=== PATIENT | female | born 1935 ===

== ENCOUNTER 2020-08-27 14:33 | Observation (INO) | payer MEDICARE, OTHER ==
--- NOTE | 2020-08-27 15:01 | PCM.EKG ---
#1 Interpretation EKG Date: 08/27/20 Time: 14:55 Rhythm: NSR Rate (Beats/Min): 54 ST-T: Normal
[2020-08-27 15:47] LABS: CARBON DIOXIDE,CO2 22.1 mmol/L (21.0-32.0); POTASSIUM,K 4.6 mmol/L (3.5-5.1)
--- NOTE | 2020-08-27 16:05 | EDM.PDOC ---
ED HPI GENERAL MEDICAL PROBLEM - General Chief Complaint: Abdominal Pain Stated Complaint: REFERRED FROM [facility] Time Seen by Provider: 08/27/20 14:36 Source of Information: Reports: Patient History Limitations: Reports: No Limitations - History of Present Illness INITIAL COMMENTS - FREE TEXT/NARRATIVE: 84-year-old female patient who presents from primary care clinic with a concern of abdominal pain and bloating. The patient states that she has not been feeling well for the last 2 weeks her abdomen has been hurting particularly on the left side and now is swollen up. She has been nauseated and poor appetite. She has not been vomiting but abdominal pain increases with eating and with urinating. For the last week her ankles and feet have been swelling and she has been urinating less. She states that she has not really had a bowel movement but instead has had scant yellow diarrhea daily. She denies chest pain, shortness of breath, dysuria, irregular heartbeat or palpitations. She does have a history of atrial fib, breast cancer and peripheral neuropathy. She has been on Coumadin for 16 years for her A-fib and is requesting an INR. abdomen Pain Score (Numeric/FACES): 4 - Related Data Allergies Allergy/AdvReac Type Severity Reaction Status Date / Time No Known Allergies Allergy Verified 08/27/20 19:55 Home Meds: Home Meds Acetaminophen [Tylenol Extra Strength] 2 tab PO ASDIRECTED PRN 10/29/14 [History] Anastrozole [Arimidex] 1 mg PO DAILY 10/29/14 [History] Lisinopril/Hydrochlorothiazide [Lisinopril-Hctz 20-12.5 mg Tab] 1 tab PO DAILY 10/29/14 [History] Sotalol HCl [Sorine] 120 mg PO ASDIRECTED 10/29/14 [History] Sotalol HCl [Sotalol] 80 mg PO ASDIRECTED 10/29/14 [History] Vitamin B Complex [B Complex] 1 tab PO DAILY 10/29/14 [History] Warfarin [Coumadin] 4 mg PO DAILY 10/29/14 [History] Zolpidem Tartrate 5 mg PO BEDTIME PRN 10/29/14 [History] traMADol HCl [Ultram] 50 mg PO ASDIRECTED PRN 10/29/14 [History] Gabapentin [Neurontin] 400 mg PO DAILY 08/27/20 [History] Past Medical History HEENT History: Reports: Macular Degeneration Other HEENT History: wears glasses Cardiovascular History: Reports: Afib, Hypertension, SOB on Exertion Respiratory History: Reports: Other (See Below) Other Respiratory History: SOB with exertion Gastrointestinal History: Reports: GERD Genitourinary History: Reports: Other (See Below) Other Genitourinary History: urinary urgency [employer]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 Musculoskeletal History: Reports: None Neurological History: Reports: None, Neuropathy, Peripheral Psychiatric History: Reports: None Endocrine/Metabolic History: Reports: Obesity/BMI 30+ Hematologic History: Reports: Blood Transfusion(s) Other Hematologic History: blood transfusion with hip replacement Immunologic History: Reports: None Oncologic (Cancer) History: Reports: Breast Dermatologic History: Reports: None - Past Surgical History Head Surgeries/Procedures: Reports: None HEENT Surgical History: Reports: Cataract Surgery, Tonsillectomy Cardiovascular Surgical History: Reports: None Respiratory Surgical History: Reports: None GI Surgical History: Reports: Appendectomy, Cholecystectomy, Colonoscopy, EGD Female Surgical History: Reports: Breast Biopsy, Hysterectomy Endocrine Surgical History: Reports: None Neurological Surgical History: Reports: Lumbar Spine Other Neurological Surgeries/Procedures: hx back surgery Musculoskeletal Surgical History: Reports: Hip Replacement Oncologic Surgical History: Reports: Lumpectomy Other Oncologic Surgeries/Procedures: lumpectomy rt breast Dermatological Surgical History: Reports: None Social & Family History - Family History Family Medical History: No Pertinent Family History - Tobacco Use Tobacco Use Status *Q: Never Tobacco User - Caffeine Use Caffeine Use: Reports: Coffee - Recreational Drug Use Recreational Drug Use: No ED ROS GENERAL - Review of Systems Review Of Systems: Comprehensive ROS is negative, except as noted in HPI. ED EXAM, GI/ABD - Physical Exam Exam: See Below Exam Limited By: No Limitations General Appearance: Alert, No Apparent Distress Ears: Normal External Exam Nose: Normal Inspection Throat/Mouth: Normal Inspection Head: Atraumatic, Normocephalic Neck: Normal Inspection Respiratory/Chest: No Respiratory Distress, Lungs Clear, Normal Breath Sounds Cardiovascular: Normal Peripheral Pulses, Regular Rate, Rhythm, Other (2+ pitting edema in the lower legs and feet) GI/Abdominal Exam: Normal Bowel Sounds, Distended, Tender, Other (firm) Back Exam: Normal Inspection Extremities: Pedal Edema Neurological: Alert, Oriented Psychiatric: Normal Affect, Normal Mood Skin Exam: Warm, Dry, Intact, Normal Color, No Rash Lymphatic: No Adenopathy #1 Interpretation EKG Date: 08/27/20 Time: 14:53 Rhythm: NSR Rate (Beats/Min): 54 [place]: Normal P-Wave: Present QRS: Normal ST-T: Normal QT: Normal NV/PQ Interval: 193 Course - Vital Signs Last Recorded V/S: Last Vital Signs Temp 36.3 C 08/27/20 15:09 Pulse 52 L 08/27/20 15:09 Resp 16 08/27/20 15:09 BP 125/39 L 08/27/20 15:09 Pulse Ox 95 08/27/20 15:09 - Orders/Labs/Meds Orders: Active Orders 24 hr Category Date Time Status UA W/MYNOR RFLX IF INDICATED [URIN] Stat Lab 08/27/20 15:20 Ordered Medication Orders Acetaminophen (Tylenol) 650 mg PO Q4H PRN PRN Reason: Pain (Mild 1-3)/fever Gabapentin (Neurontin) 200 mg PO BEDTIME ROBB Pantoprazole Sodium 40 mg/ (Sodium Chloride) 10 mls @ 300 mls/hr IVPUSH DAILY ROBB Lactated Ringer's (Ringers, Lactated) 1,000 mls @ 75 mls/hr IV CONTINUOUS ONE Stop: 08/28/20 08:59 Last Admin: 08/27/20 21:07 Dose: 75 mls/hr Documented by: SENG Morphine Sulfate (Morphine) 2 mg IVPUSH Q4H PRN PRN Reason: Pain Ondansetron HCl (Zofran) 4 mg IVPUSH Q4H PRN PRN Reason: Nausea Warfarin Sodium (Coumadin Ask) 1 each PO ONETIME ONE Stop: 08/27/20 19:06 Labs: Laboratory Tests 08/27/20 08/27/20 08/27/20 Range/Units 15:06 15:06 15:06 WBC 9.86 (4.0-11.0) K/uL RBC 4.44 (4.30-5.90) M/uL Hgb 12.8 (12.0-16.0) g/dL Hct 38.7 (36.0-46.0) % MCV 87.2 (80.0-98.0) fL MCH 28.8 (27.0-32.0) pg MCHC 33.1 (31.0-37.0) g/dL RDW Std Deviation 48.6 (28.0-62.0) fl RDW Coeff of Geo 15 (11.0-15.0) % Plt Count 250 (150-400) K/uL MPV 10.40 (7.40-12.00) fL Neut % (Auto) 74.9 (48.0-80.0) % Lymph % (Auto) 17.4 (16.0-40.0) % [place] % (Auto) 6.7 (0.0-15.0) % Eos % (Auto) 0.8 (0.0-7.0) % Baso % (Auto) 0.2 (0.0-1.5) % Neut # (Auto) 7.4 H (1.4-5.7) K/uL Lymph # (Auto) 1.7 (0.6-2.4) K/uL [place] # (Auto) 0.7 (0.0-0.8) K/uL Eos # (Auto) 0.1 (0.0-0.7) K/uL Baso # (Auto) 0.0 (0.0-0.1) K/uL Nucleated RBC % 0.0 /100WBC Nucleated RBCs # 0 K/uL Sodium 136 (136-145) mmol/L Potassium 4.6 (3.5-5.1) mmol/L Chloride 100 (98-107) mmol/L Carbon Dioxide 22.1 (21.0-32.0) mmol/L BUN 64 H (7.0-18.0) mg/dL Creatinine 2.3 H (0.6-1.0) mg/dL Est Cr Clr Drug Dosing 16.44 mL/min Estimated GFR (MDRD) 20.1 ml/min Glucose 106 (74-106) mg/dL Calcium 10.5 H (8.5-10.1) mg/dL Total Bilirubin 0.2 (0.2-1.0) mg/dL AST 32 (15-37) IU/L ALT 17 (14-63) IU/L Alkaline Phosphatase 92 (46-116) U/L B-Natriuretic Peptide 71 (<100) PG/ML Total Protein 6.1 L (6.4-8.2) g/dL Albumin 2.9 L (3.4-5.0) g/dL Globulin 3.2 (2.6-4.0) g/dL Albumin/Globulin Ratio 0.9 (0.9-1.6) SARS-CoV-2 RNA (GIANLUCA) (NEGATIVE) 08/27/20 Range/Units 16:08 WBC (4.0-11.0) K/uL RBC (4.30-5.90) M/uL Hgb (12.0-16.0) g/dL Hct (36.0-46.0) % MCV (80.0-98.0) fL MCH (27.0-32.0) pg MCHC (31.0-37.0) g/dL RDW Std Deviation (28.0-62.0) fl RDW Coeff of Geo (11.0-15.0) % Plt Count (150-400) K/uL MPV (7.40-12.00) fL Neut % (Auto) (48.0-80.0) % Lymph % (Auto) (16.0-40.0) % [place] % (Auto) (0.0-15.0) % Eos % (Auto) (0.0-7.0) % Baso % (Auto) (0.0-1.5) % Neut # (Auto) (1.4-5.7) K/uL Lymph # (Auto) (0.6-2.4) K/uL [place] # (Auto) (0.0-0.8) K/uL Eos # (Auto) (0.0-0.7) K/uL Baso # (Auto) (0.0-0.1) K/uL Nucleated RBC % /100WBC Nucleated RBCs # K/uL Sodium (136-145) mmol/L Potassium (3.5-5.1) mmol/L Chloride (98-107) mmol/L Carbon Dioxide (21.0-32.0) mmol/L BUN (7.0-18.0) mg/dL Creatinine (0.6-1.0) mg/dL Est Cr Clr Drug Dosing mL/min Estimated GFR (MDRD) ml/min Glucose (74-106) mg/dL Calcium (8.5-10.1) mg/dL Total Bilirubin (0.2-1.0) mg/dL AST (15-37) IU/L ALT (14-63) IU/L Alkaline Phosphatase (46-116) U/L B-Natriuretic Peptide (<100) PG/ML Total Protein (6.4-8.2) g/dL Albumin (3.4-5.0) g/dL Globulin (2.6-4.0) g/dL Albumin/Globulin Ratio (0.9-1.6) SARS-CoV-2 RNA (GIANLUCA) NEGATIVE (NEGATIVE) Meds: Medications Generic Name Dose Route Start Last Admin Trade Name Mohinder PRN Reason Stop Dose Admin Acetaminophen 650 mg 08/27/20 19:02 Tylenol PO Q4H PRN Pain (Mild 1-3)/fever Gabapentin 200 mg 08/27/20 21:00 Neurontin PO BEDTIME ROBB Pantoprazole Sodium 40 mg/ 10 mls @ 300 mls/hr 08/27/20 19:15 Sodium Chloride IVPUSH DAILY ROBB Lactated Ringer's 1,000 mls @ 75 mls/hr 08/27/20 19:40 08/27/20 21:07 Ringers, Lactated IV 08/28/20 08:59 75 mls/hr CONTINUOUS ONE Administration Morphine Sulfate 2 mg 08/27/20 19:04 Morphine IVPUSH Q4H PRN Pain Ondansetron HCl 4 mg 08/27/20 19:02 Zofran IVPUSH Q4H PRN Nausea Warfarin Sodium 1 each 08/27/20 19:05 Coumadin Ask PO 08/27/20 19:06 ONETIME ONE Discontinued Medications Generic Name Dose Route Start Last Admin Trade Name Mohinder PRN Reason Stop Dose Admin Sodium Chloride 1,000 mls @ 75 mls/hr 08/27/20 16:14 08/27/20 16:23 Normal Saline IV 08/28/20 05:33 75 mls/hr STAT ONE Administration Lactated Ringer's 500 mls @ 999 mls/hr 08/27/20 19:07 08/27/20 19:58 Ringers, Lactated IV 08/27/20 19:37 999 mls/hr BOLUS ONE Administration No Warfarin Dose 0 each 08/27/20 21:15 Needed For 08/27/2020 PO 08/27/20 21:16 ONETIME ONE Ondansetron HCl 4 mg 08/27/20 16:14 08/27/20 16:23 Zofran IVPUSH 08/27/20 16:15 4 mg ONETIME ONE Administration - Re-Assessments/Exams Free Text/Narrative Re-Assessment/Exam: 08/27/20 20:[address] Wiggins regarding history, presentation, lab and imaging findings. Same will refer to observation for KAROL, nausea, abdominal pain and peripheral edema. Departure - Departure Time of Disposition: 20:15 Disposition: Refer to Observation Condition: Fair Clinical Impression: Ascites, KAROL (acute kidney injury), Peripheral neuropathy, Peritoneal carcinomatosis - Discharge Information Sepsis Event Note (ED) - Evaluation Sepsis Screening Result: No Definite Risk - Focused Exam Vital Signs: Vital Signs Temp Pulse Resp BP Pulse Ox 08/27/20 15:09 36.3 C 52 L 16 125/39 L 95 - My Orders Last 24 Hours: My Active Orders 08/27/20 15:20 UA W/MYNOR RFLX IF INDICATED [URIN] Stat - Assessment/Plan Last 24 Hours: My Active Orders 08/27/20 15:20 UA W/MYNOR RFLX IF INDICATED [URIN] Stat
--- NOTE | 2020-08-27 16:05 | CR ---
INDICATION: Pain shortness of breath TECHNIQUE: Single view chest. FINDINGS: The lungs are clear. The heart, mediastinum and pulmonary vessels are of normal size. There is no evidence of pleural disease. Right axillary clips. IMPRESSION: Negative chest. Dictated by Suzanne Layton MD @ Aug 27 2020 4:03PM Signed by Dr. Suzanne Layton @ Aug 27 2020 4:04PM
[2020-08-27] MEDS ORDERED: Ondansetron 4 MG/2 ML SDV IVPUSH ONE (16:14)
[2020-08-27] MEDS ORDERED: Sodium Chloride 0.9% 1,000 ML IV ONE (16:14)
--- NOTE | 2020-08-27 16:41 | CT ---
INDICATION: Abdominal pain for the last 2 weeks; worse today; normal white count. COMPARISON: None. TECHNIQUE: CT abdomen and pelvis without intravenous or oral contrast; coronal and sagittal reformats. FINDINGS: Evidence of abdominal pelvic ascites. extensive peritoneal carcinomatosis with peritoneal caking throughout the abdomen and pelvis. 11 x 7.7 x 8.6 cm soft tissue mass in the mesentery with extensive mesenteric lymphadenopathy throughout. Extensive periaortic and retroperitoneal lymphadenopathy. No pneumoperitoneum or intestinal obstruction. lymphadenopathy identified in the epicardial fat pad bilaterally . No focal hepatic or splenic pathology . There is possibly peripancreatic soft tissue mass lesions. The gallbladder is absent. No adrenal pathology. No kidney stones or obstructive uropathy. There is encasement of the sigmoid colon by the soft tissue mass within the pelvis. Total hip arthroplasty on the left side. Extensive disc degeneration and disc space narrowing throughout the lumbar sacral spine. Impression: 1. Extensive mesenteric and retroperitoneal lymphadenopathy as well as a soft tissue mass in the mesentery. 2. 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 3. Evidence of abdominal pelvic ascites. 4. CT-guided biopsy of the peritoneal nodularity can be performed if clinically needed for histological diagnosis. 5. Findings were notified to Dr. Yates at 4:36 p.m. Please note that all CT scans at this facility use dose modulation, iterative reconstruction, and/or weight-based dosing when appropriate to reduce radiation dose to as low as reasonably achievable. Dictated by Perry Cooper MD @ Aug 27 2020 4:29PM Signed by Dr. Perry Cooper @ Aug 27 2020 4:39PM
[2020-08-27] MEDS ORDERED: Ondansetron 4 MG/2 ML SDV IVPUSH PRN (19:02)
[2020-08-27] MEDS ORDERED: Morphine 2 MG/ML SYRINGE IVPUSH PRN (19:04)
[2020-08-27] MEDS ORDERED: Lactated Ringers 500 ML IV ONE (19:07)
--- NOTE | 2020-08-27 19:09 | PCM.HP.2 ---
<Markell Pedroza M - Last Filed: 08/27/20 19:49> H&P History of Present Illness - General Date of Service: 08/27/20 Admit Problem/Dx: Admission Diagnosis/Problem Admission Diagnosis/Problem Nausea Source of Information: Patient History Limitations: Reports: No Limitations - History of Present Illness Initial Comments - Free Text/Narative: 84-year-old female presents complaining of abdominal pain. She has a past medical history of A. fib on warfarin, breast cancer (remission since 2010), hypertension and peripheral neuropathy. Patient reports that for the past 2 weeks she has been experiencing left-sided abdominal pain and swelling. She has also experienced nausea, decreased appetite, fatigue, leg swelling, decreased urination and yellow-colored diarrhea. She has not had any fevers, chills, sore throat, cough, shortness of breath, chest pain, vomiting, blood in stool, blood in urine, numbness or tingling in extremities. Patient last had chemotherapy for breast cancer in 2010 and used to follow-up with an oncologist here in [place], [place]. In the ER, EKG showed normal sinus rhythm, CBC unremarkable and creatinine 2.3. COVID-19 test negative. Chest X-ray negative. CT abdomen showed extensive mesenteric and retroperitoneal lymphadenopathy, soft tissue mass in the mesentery (11 x 7.7 x 8.6 cm), extensive peritoneal carcinomatosis throughout the abdomen and abdominal pelvic ascites. She was admitted for further evaluation. abdomen Pain Score (Numeric/FACES): 4 - Related Data Allergies/Adverse Reactions: Allergies Allergy/AdvReac Type Severity Reaction Status Date / Time No Known Allergies Allergy Verified 08/27/20 19:55 Home Medications: Home Meds Acetaminophen [Tylenol Extra Strength] 2 tab PO ASDIRECTED PRN 10/29/14 [History] Lisinopril/Hydrochlorothiazide [Lisinopril-Hctz 20-12.5 mg Tab] 1 tab PO DAILY 10/29/14 [History] Sotalol HCl [Sorine] 120 mg PO ASDIRECTED 10/29/14 [History] Sotalol HCl [Sotalol] 80 mg PO ASDIRECTED 10/29/14 [History] Vitamin B Complex [B Complex] 1 tab PO DAILY 10/29/14 [History] Warfarin [Coumadin] 4 mg PO DAILY 10/29/14 [History] Zolpidem Tartrate 5 mg PO BEDTIME PRN 10/29/14 [History] traMADol HCl [Ultram] 50 mg PO ASDIRECTED PRN 10/29/14 [History] Erythromycin Base [Erythromycin 0.5% Ophth Oint] 1 applic EYEBOTH BEDTIME 08/27/20 [History] Gabapentin [Neurontin] 200 mg PO BID 08/27/20 [History] Vit C/E/Zn/Coppr/Lutein/Zeaxan [Preservision Areds 2 Softgel] 1 cap PO DAILY 08/27/20 [History] Vitamins A and D [Vitamin A and D] 1 each PO DAILY 08/27/20 [History] Past Medical History HEENT History: Reports: Macular Degeneration Other HEENT History: wears glasses Cardiovascular History: Reports: Afib, Hypertension, SOB on Exertion Respiratory History: Reports: Other (See Below) Other Respiratory History: SOB with exertion Gastrointestinal History: Reports: GERD Genitourinary History: Reports: Other (See Below) Other Genitourinary History: urinary urgency [employer]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[employer]OR History: Reports: None Musculoskeletal History: Reports: None Neurological History: Reports: None, Neuropathy, Peripheral Psychiatric History: Reports: None Endocrine/Metabolic History: Reports: Obesity/BMI 30+ Hematologic History: Reports: Blood Transfusion(s) Other Hematologic History: blood transfusion with hip replacement Immunologic History: Reports: None Oncologic (Cancer) History: Reports: Breast Dermatologic History: Reports: None - Past Surgical History Head Surgeries/Procedures: Reports: None HEENT Surgical History: Reports: Cataract Surgery, Tonsillectomy Cardiovascular Surgical History: Reports: None Respiratory Surgical History: Reports: None GI Surgical History: Reports: Appendectomy, Cholecystectomy, Colonoscopy, EGD Female Surgical History: Reports: Breast Biopsy, Hysterectomy Endocrine Surgical History: Reports: None Neurological Surgical History: Reports: Lumbar Spine Other Neurological Surgeries/Procedures: hx back surgery Musculoskeletal Surgical History: Reports: Hip Replacement Oncologic Surgical History: Reports: Lumpectomy Other Oncologic Surgeries/Procedures: lumpectomy rt breast Dermatological Surgical History: Reports: None Social & Family History - Family History Family Medical History: No Pertinent Family History - Tobacco Use Tobacco Use Status *Q: Never Tobacco User - Caffeine Use Caffeine Use: Reports: Coffee - Recreational Drug Use Recreational Drug Use: No H&P Review of Systems - Review of Systems: Review Of Systems: Comprehensive ROS is negative, except as noted in HPI. Exam - Exam Exam: See Below - Vital Signs Vital Signs: Last Vital Signs Temp 36.3 C 08/27/20 15:09 Pulse 52 L 08/27/20 15:09 Resp 16 08/27/20 15:09 BP 125/39 L 08/27/20 15:09 Pulse Ox 95 08/27/20 15:09 Weight: 77.111 kg - Exam General: Alert, Oriented, Cooperative, Other (NAD) HEENT: Conjunctiva Clear, EOMI, Hearing Intact, Pupils Equal, Pupils Reactive Neck: Supple, Trachea Midline, Lymphadenopathy Lungs: Normal Respiratory Effort Cardiovascular: Regular Rate, Regular Rhythm GI/Abdominal Exam: Normal Bowel Sounds, Non-Tender, Distended, Other (Firm in LUQ and LLQ.). No: Guarding, Rebound Extremities: Other (1+ pitting edema b/l) Peripheral Pulses: 2+: Radial (L), Radial (R) Skin: Warm, Dry, Intact Neurological: Cranial Nerves Intact, Strength Equal Bilateral, Normal Speech, Normal Tone Neuro Extensive - Mental Status: Alert, Oriented x3, Normal Mood/Affect Psychiatric: Alert, Normal Affect, Normal Mood - Patient Data Lab Results Last 24 hrs: Laboratory Results - last 24 hr 08/27/20 08/27/20 08/27/20 Range/Units 15:06 15:06 15:06 WBC 9.86 (4.0-11.0) K/uL RBC 4.44 (4.30-5.90) M/uL Hgb 12.8 (12.0-16.0) g/dL Hct 38.7 (36.0-46.0) % MCV 87.2 (80.0-98.0) fL MCH 28.8 (27.0-32.0) pg MCHC 33.1 (31.0-37.0) g/dL RDW Std Deviation 48.6 (28.0-62.0) fl RDW Coeff of Geo 15 (11.0-15.0) % Plt Count 250 (150-400) K/uL MPV 10.40 (7.40-12.00) fL Neut % (Auto) 74.9 (48.0-80.0) % Lymph % (Auto) 17.4 (16.0-40.0) % [place] % (Auto) 6.7 (0.0-15.0) % Eos % (Auto) 0.8 (0.0-7.0) % Baso % (Auto) 0.2 (0.0-1.5) % Neut # (Auto) 7.4 H (1.4-5.7) K/uL Lymph # (Auto) 1.7 (0.6-2.4) K/uL [place] # (Auto) 0.7 (0.0-0.8) K/uL Eos # (Auto) 0.1 (0.0-0.7) K/uL Baso # (Auto) 0.0 (0.0-0.1) K/uL Nucleated RBC % 0.0 /100WBC Nucleated RBCs # 0 K/uL Sodium 136 (136-145) mmol/L Potassium 4.6 (3.5-5.1) mmol/L Chloride 100 (98-107) mmol/L Carbon Dioxide 22.1 (21.0-32.0) mmol/L BUN 64 H (7.0-18.0) mg/dL Creatinine 2.3 H (0.6-1.0) mg/dL Est Cr Clr Drug Dosing 16.44 mL/min Estimated GFR (MDRD) 20.1 ml/min Glucose 106 (74-106) mg/dL Calcium 10.5 H (8.5-10.1) mg/dL Total Bilirubin 0.2 (0.2-1.0) mg/dL AST 32 (15-37) IU/L ALT 17 (14-63) IU/L Alkaline Phosphatase 92 (46-116) U/L B-Natriuretic Peptide 71 (<100) PG/ML Total Protein 6.1 L (6.4-8.2) g/dL Albumin 2.9 L (3.4-5.0) g/dL Globulin 3.2 (2.6-4.0) g/dL Albumin/Globulin Ratio 0.9 (0.9-1.6) SARS-CoV-2 RNA (GIANLUCA) (NEGATIVE) 08/27/20 Range/Units 16:08 WBC (4.0-11.0) K/uL RBC (4.30-5.90) M/uL Hgb (12.0-16.0) g/dL Hct (36.0-46.0) % MCV (80.0-98.0) fL MCH (27.0-32.0) pg MCHC (31.0-37.0) g/dL RDW Std Deviation (28.0-62.0) fl RDW Coeff of Geo (11.0-15.0) % Plt Count (150-400) K/uL MPV (7.40-12.00) fL Neut % (Auto) (48.0-80.0) % Lymph % (Auto) (16.0-40.0) % [place] % (Auto) (0.0-15.0) % Eos % (Auto) (0.0-7.0) % Baso % (Auto) (0.0-1.5) % Neut # (Auto) (1.4-5.7) K/uL Lymph # (Auto) (0.6-2.4) K/uL [place] # (Auto) (0.0-0.8) K/uL Eos # (Auto) (0.0-0.7) K/uL Baso # (Auto) (0.0-0.1) K/uL Nucleated RBC % /100WBC Nucleated RBCs # K/uL Sodium (136-145) mmol/L Potassium (3.5-5.1) mmol/L Chloride (98-107) mmol/L Carbon Dioxide (21.0-32.0) mmol/L BUN (7.0-18.0) mg/dL Creatinine (0.6-1.0) mg/dL Est Cr Clr Drug Dosing mL/min Estimated GFR (MDRD) ml/min Glucose (74-106) mg/dL Calcium (8.5-10.1) mg/dL Total Bilirubin (0.2-1.0) mg/dL AST (15-37) IU/L ALT (14-63) IU/L Alkaline Phosphatase (46-116) U/L B-Natriuretic Peptide (<100) PG/ML Total Protein (6.4-8.2) g/dL Albumin (3.4-5.0) g/dL Globulin (2.6-4.0) g/dL Albumin/Globulin Ratio (0.9-1.6) SARS-CoV-2 RNA (GIANLUCA) NEGATIVE (NEGATIVE) Result Diagrams: 08/27/20 15:06 08/27/20 15:06 Sepsis Event Note - Evaluation Sepsis Screening Result: No Definite Risk - Focused Exam Vital Signs: Vital Signs Temp Pulse Resp BP Pulse Ox 08/27/20 15:09 36.3 C 52 L 16 125/39 L 95 - Problem List (1) Peritoneal carcinomatosis SNOMED Code(s): 396969226, 895647982, 046211245 ICD Code: C78.6 - SECONDARY MALIGNANT NEOPLASM OF RETROPERITON AND PERITONEUM Status: Acute Current Visit: Yes (2) Breast cancer SNOMED Code(s): 170732074 ICD Code: C50.919 - MALIGNANT NEOPLASM OF UNSP SITE OF UNSPECIFIED FEMALE BREAST Status: Acute Current Visit: Yes (3) Ascites SNOMED Code(s): 753226533 ICD Code: R18.8 - OTHER ASCITES Status: Acute Current Visit: Yes (4) Atrial fibrillation SNOMED Code(s): 18298137 ICD Code: I48.91 - UNSPECIFIED ATRIAL FIBRILLATION Status: Acute Current Visit: Yes (5) KAROL (acute kidney injury) SNOMED Code(s): 08286787, 53806530 ICD Code: N17.9 - ACUTE KIDNEY FAILURE, UNSPECIFIED Status: Acute Current Visit: Yes (6) HTN (hypertension) SNOMED Code(s): 76969135 ICD Code: I10 - ESSENTIAL (PRIMARY) HYPERTENSION Status: Acute Current Visit: Yes (7) Peripheral neuropathy SNOMED Code(s): 189260227 ICD Code: G62.9 - POLYNEUROPATHY, UNSPECIFIED Status: Acute Current Visit: Yes Problem List Initiated/Reviewed/Updated: Yes Orders Last 24hrs: Active Orders 24 hr Category Date Time Status Patient Status [ADT] Stat ADT 08/27/20 17:45 Active Antiembolic Devices [RC] PER UNIT ROUTINE Care 08/27/20 19:04 Ordered Oxygen Therapy [RC] PRN Care 08/27/20 19:02 Ordered Telemetry Monitoring [Cardiac Monitoring] [RC] . Care 08/27/20 17:51 Active DIRECTED Telemetry Monitoring [Cardiac Monitoring] [RC] . Care 08/27/20 19:05 Ordered DIRECTED Up ad Koki [RC] ASDIRECTED Care 08/27/20 19:02 Ordered VTE/DVT Education [RC] PER UNIT ROUTINE Care 08/27/20 19:02 Ordered Vital Signs [RC] Q4H Care 08/27/20 19:02 Ordered Clear Liquid Diet [DIET] Diet 08/27/20 Dinner Ordered CBC WITH AUTO DIFF [HEME] AM Lab 08/28/20 05:11 Ordered COMPREHENSIVE METABOLIC PN,CMP [CHEM] AM Lab 08/28/20 05:11 Ordered INR,PT,PROTHROMBIN TIME [COAG] DAILY Lab 08/28/20 05:11 Ordered INR,PT,PROTHROMBIN TIME [COAG] DAILY Lab 08/29/20 05:11 Ordered INR,PT,PROTHROMBIN TIME [COAG] DAILY Lab 08/30/20 05:11 Ordered INR,PT,PROTHROMBIN TIME [COAG] DAILY Lab 08/31/20 05:11 Ordered INR,PT,PROTHROMBIN TIME [COAG] DAILY Lab 09/01/20 05:11 Ordered INR,PT,PROTHROMBIN TIME [COAG] Routine Lab 08/27/20 19:05 Ordered UA W/MYNOR RFLX IF INDICATED [URIN] Stat Lab 08/27/20 15:20 Ordered Acetaminophen [TylenoL] Med 08/27/20 19:02 Ordered 650 mg PO Q4H PRN Lactated Ringers [Ringers, Lactated] 1,000 ml Med 08/27/20 19:15 Ordered IV ASDIRECTED Lactated Ringers [Ringers, Lactated] 500 ml Med 08/27/20 19:07 Ordered IV .BOLUS Morphine Med 08/27/20 19:04 Ordered 2 mg IVPUSH Q4H PRN Ondansetron [Zofran] Med 08/27/20 19:02 Ordered 4 mg IVPUSH Q4H PRN Pantoprazole [ProTONIX IV] 40 mg Med 08/27/20 19:15 Ordered Sodium Chloride 0.9% [Normal Saline] 10 ml IV DAILY Sodium Chloride 0.9% [Normal Saline] 1,000 ml Med 08/27/20 16:14 Active IV STAT Warfarin Dosing [Coumadin Ask] Med 08/27/20 19:05 Once 1 each PO ONETIME ONE SCD [Sequential Compression Device] [OM.PC] Routine Oth 08/27/20 19:04 Ordered Resuscitation Status Routine Resus Stat 08/27/20 19:02 Ordered Medication Orders Acetaminophen (Tylenol) 650 mg PO Q4H PRN PRN Reason: Pain (Mild 1-3)/fever Sodium Chloride (Normal Saline) 1,000 mls @ 75 mls/hr IV STAT ONE Stop: 08/28/20 05:33 Last Admin: 08/27/20 16:23 Dose: 75 mls/hr Documented by: SVITLANA Pantoprazole Sodium 40 mg/ (Sodium Chloride) 10 mls @ 300 mls/hr IVPUSH DAILY ROBB Lactated Ringer's (Ringers, Lactated) 500 mls @ 999 mls/hr IV .BOLUS ONE Stop: 08/27/20 19:37 Lactated Ringer's (Ringers, Lactated) 1,000 mls @ 75 mls/hr IV ASDIRECTED ROBB Stop: 08/28/20 08:34 Morphine Sulfate (Morphine) 2 mg IVPUSH Q4H PRN PRN Reason: Pain Ondansetron HCl (Zofran) 4 mg IVPUSH Q4H PRN PRN Reason: Nausea Warfarin Sodium (Coumadin Ask) 1 each PO ONETIME ONE Stop: 08/27/20 19:06 Assessment/Plan Comment:: Assessment and Plan: 1. Abdominal pain secondary to peritoneal carcinomatosis: - Admit to med/surg. Will start clear liquid diet, zofran prn, IV PPI and IV morphine prn pain. - CT abdomen showed extensive mesenteric and retroperitoneal lymphadenopathy, soft tissue mass in the mesentery (11 x 7.7 x 8.6 cm), extensive peritoneal carcinomatosis throughout the abdomen, abdominal pelvic ascites. - Patient has history of breast cancer in remission since 2010. - Will need outpatient oncology follow-up. 2. KAROL: - Creatinine is 2.3. Will give IV LR 500 cc bolus and then start IV LR @ 75 cc/hr maintenance. 3. Atrial fibrillation, on chronic anticoagulation: - Patient on telemetry. - Pharmacy consulted for warfarin therapy. 4. Past medical history of breast cancer, HTN and peripheral neuropathy: - Continue home medications. 5. DVT prophylaxis: - Patient on warfarin. <Tayla Fierro - Last Filed: 08/27/20 23:19> H&P History of Present Illness - General Admit Problem/Dx: Admission Diagnosis/Problem Admission Diagnosis/Problem Nausea - History of Present Illness Initial Comments - Free Text/Narative: I performed a history and physical exam of the patient and discussed management with resident. I have reviewed the residents note and agree with documented findings and plan unless otherwise specified in my note. Exam - Vital Signs Vital Signs: Last Vital Signs Temp 36.3 C 08/27/20 15:09 Pulse 52 L 08/27/20 15:09 Resp 16 08/27/20 15:09 BP 125/39 L 08/27/20 15:09 Pulse Ox 95 08/27/20 15:09 - Patient Data Lab Results Last 24 hrs: Laboratory Results - last 24 hr 08/27/20 08/27/20 08/27/20 Range/Units 15:06 15:06 15:06 WBC 9.86 (4.0-11.0) K/uL RBC 4.44 (4.30-5.90) M/uL Hgb 12.8 (12.0-16.0) g/dL Hct 38.7 (36.0-46.0) % MCV 87.2 (80.0-98.0) fL MCH 28.8 (27.0-32.0) pg MCHC 33.1 (31.0-37.0) g/dL RDW Std Deviation 48.6 (28.0-62.0) fl RDW Coeff of Geo 15 (11.0-15.0) % Plt Count 250 (150-400) K/uL MPV 10.40 (7.40-12.00) fL Neut % (Auto) 74.9 (48.0-80.0) % Lymph % (Auto) 17.4 (16.0-40.0) % [place] % (Auto) 6.7 (0.0-15.0) % Eos % (Auto) 0.8 (0.0-7.0) % Baso % (Auto) 0.2 (0.0-1.5) % Neut # (Auto) 7.4 H (1.4-5.7) K/uL Lymph # (Auto) 1.7 (0.6-2.4) K/uL [place] # (Auto) 0.7 (0.0-0.8) K/uL Eos # (Auto) 0.1 (0.0-0.7) K/uL Baso # (Auto) 0.0 (0.0-0.1) K/uL Nucleated RBC % 0.0 /100WBC Nucleated RBCs # 0 K/uL INR Sodium 136 (136-145) mmol/L Potassium 4.6 (3.5-5.1) mmol/L Chloride 100 (98-107) mmol/L Carbon Dioxide 22.1 (21.0-32.0) mmol/L BUN 64 H (7.0-18.0) mg/dL Creatinine 2.3 H (0.6-1.0) mg/dL Est Cr Clr Drug Dosing 16.44 mL/min Estimated GFR (MDRD) 20.1 ml/min Glucose 106 (74-106) mg/dL Calcium 10.5 H (8.5-10.1) mg/dL Total Bilirubin 0.2 (0.2-1.0) mg/dL AST 32 (15-37) IU/L ALT 17 (14-63) IU/L Alkaline Phosphatase 92 (46-116) U/L B-Natriuretic Peptide 71 (<100) PG/ML Total Protein 6.1 L (6.4-8.2) g/dL Albumin 2.9 L (3.4-5.0) g/dL Globulin 3.2 (2.6-4.0) g/dL Albumin/Globulin Ratio 0.9 (0.9-1.6) SARS-CoV-2 RNA (GIANLUCA) (NEGATIVE) 08/27/20 08/27/20 Range/Units 16:08 20:05 WBC (4.0-11.0) K/uL RBC (4.30-5.90) M/uL Hgb (12.0-16.0) g/dL Hct (36.0-46.0) % MCV (80.0-98.0) fL MCH (27.0-32.0) pg MCHC (31.0-37.0) g/dL RDW Std Deviation (28.0-62.0) fl RDW Coeff of Geo (11.0-15.0) % Plt Count (150-400) K/uL MPV (7.40-12.00) fL Neut % (Auto) (48.0-80.0) % Lymph % (Auto) (16.0-40.0) % [place] % (Auto) (0.0-15.0) % Eos % (Auto) (0.0-7.0) % Baso % (Auto) (0.0-1.5) % Neut # (Auto) (1.4-5.7) K/uL Lymph # (Auto) (0.6-2.4) K/uL [place] # (Auto) (0.0-0.8) K/uL Eos # (Auto) (0.0-0.7) K/uL Baso # (Auto) (0.0-0.1) K/uL Nucleated RBC % /100WBC Nucleated RBCs # K/uL INR 13.48 H* Sodium (136-145) mmol/L Potassium (3.5-5.1) mmol/L Chloride (98-107) mmol/L Carbon Dioxide (21.0-32.0) mmol/L BUN (7.0-18.0) mg/dL Creatinine (0.6-1.0) mg/dL Est Cr Clr Drug Dosing mL/min Estimated GFR (MDRD) ml/min Glucose (74-106) mg/dL Calcium (8.5-10.1) mg/dL Total Bilirubin (0.2-1.0) mg/dL AST (15-37) IU/L ALT (14-63) IU/L Alkaline Phosphatase (46-116) U/L B-Natriuretic Peptide (<100) PG/ML Total Protein (6.4-8.2) g/dL Albumin (3.4-5.0) g/dL Globulin (2.6-4.0) g/dL Albumin/Globulin Ratio (0.9-1.6) SARS-CoV-2 RNA (GIANLUCA) NEGATIVE (NEGATIVE) Result Diagrams: 08/27/20 15:06 08/27/20 15:06 Sepsis Event Note - Focused Exam Vital Signs: Vital Signs Temp Pulse Resp BP Pulse Ox 08/27/20 15:09 36.3 C 52 L 16 125/39 L 95 Orders Last 24hrs: Active Orders 24 hr Category Date Time Status Patient Status [ADT] Stat ADT 08/27/20 17:45 Active Antiembolic Devices [RC] PER UNIT ROUTINE Care 08/27/20 19:04 Active Oxygen Therapy [RC] PRN Care 08/27/20 19:02 Active Telemetry Monitoring [Cardiac Monitoring] [RC] . Care 08/27/20 17:51 Active DIRECTED Telemetry Monitoring [Cardiac Monitoring] [RC] Q8H Care 08/27/20 19:05 Active Up ad Koki [RC] ASDIRECTED Care 08/27/20 19:02 Active VTE/DVT Education [RC] PER UNIT ROUTINE Care 08/27/20 19:02 Active Vital Signs [RC] Q4H Care 08/27/20 19:02 Active Clear Liquid Diet [DIET] Diet 08/27/20 Dinner Active CBC WITH AUTO DIFF [HEME] AM Lab 08/28/20 05:11 Ordered COMPREHENSIVE METABOLIC PN,CMP [CHEM] AM Lab 08/28/20 05:11 Ordered INR,PT,PROTHROMBIN TIME [COAG] DAILY Lab 08/28/20 05:11 Ordered INR,PT,PROTHROMBIN TIME [COAG] DAILY Lab 08/29/20 05:11 Ordered INR,PT,PROTHROMBIN TIME [COAG] DAILY Lab 08/30/20 05:11 Ordered INR,PT,PROTHROMBIN TIME [COAG] DAILY Lab 08/31/20 05:11 Ordered INR,PT,PROTHROMBIN TIME [COAG] DAILY Lab 09/01/20 05:11 Ordered UA W/MYNOR RFLX IF INDICATED [URIN] Stat Lab 08/27/20 15:20 Ordered Acetaminophen [TylenoL] Med 08/27/20 19:02 Active 650 mg PO Q4H PRN Gabapentin [Neurontin] Med 08/27/20 21:00 Active 200 mg PO BEDTIME Lactated Ringers [Ringers, Lactated] 1,000 ml Med 08/27/20 19:40 Active IV CONTINUOUS Morphine Med 08/27/20 19:04 Active 2 mg IVPUSH Q4H PRN Ondansetron [Zofran] Med 08/27/20 19:02 Active 4 mg IVPUSH Q4H PRN Pantoprazole [ProTONIX IV] 40 mg Med 08/27/20 19:15 Active Sodium Chloride 0.9% [Normal Saline] 10 ml IVPUSH DAILY Phytonadione [AquaMephyton] 2.5 mg Med 08/27/20 23:02 Active Sodium Chloride 0.9% [Normal Saline] 50 ml IV NOW Warfarin Dosing [Coumadin Ask] Med 08/27/20 19:05 Pending 1 each PO ONETIME ONE SCD [Sequential Compression Device] [OM.PC] Routine Oth 08/27/20 19:04 Ordered Resuscitation Status Routine Resus Stat 08/27/20 19:02 Ordered Medication Orders Acetaminophen (Tylenol) 650 mg PO Q4H PRN PRN Reason: Pain (Mild 1-3)/fever Gabapentin (Neurontin) 200 mg PO BEDTIME [facility] Last Admin: 08/27/20 21:40 Dose: 200 mg Documented by: SENG Pantoprazole Sodium 40 mg/ (Sodium Chloride) 10 mls @ 300 mls/hr IVPUSH DAILY [facility] Last Admin: 08/27/20 21:34 Dose: 300 mls/hr Documented by: SENG Lactated Ringer's (Ringers, Lactated) 1,000 mls @ 75 mls/hr IV CONTINUOUS ONE Stop: 08/28/20 08:59 Last Admin: 08/27/20 21:07 Dose: 75 mls/hr Documented by: SENG Phytonadione 2.5 mg/ Sodium (Chloride) 50.25 mls @ 100 mls/hr IV NOW ONE Stop: 08/27/20 23:32 Morphine Sulfate (Morphine) 2 mg IVPUSH Q4H PRN PRN Reason: Pain Ondansetron HCl (Zofran) 4 mg IVPUSH Q4H PRN PRN Reason: Nausea Warfarin Sodium (Coumadin Ask) 1 each PO ONETIME ONE Stop: 08/27/20 19:06
[2020-08-27] MEDS ORDERED: Lactated Ringers 1,000 ML IV ONE (19:40)
[2020-08-27] MEDS: Pantoprazole 40 MG in Sodium Chloride 0.9% 10 ML IVPUSH SCH (21:34)
[2020-08-27] MEDS: Gabapentin 100 MG Cap PO SCH (21:40)
[2020-08-27] MEDS ORDERED: Phytonadione 5 MG Tab PO ONE (22:10)
[2020-08-28] MEDS: Acetaminophen 325 MG Tab PO PRN ×2 (03:02→18:45)
[2020-08-28 05:44] LABS: CARBON DIOXIDE,CO2 21.3 mmol/L (21.0-32.0); POTASSIUM,K 4.4 mmol/L (3.5-5.1)
[2020-08-28] MEDS: cefTRIAXone 1 GM in Premix Bag 1 BAG IV SCH (06:33)
--- NOTE | 2020-08-28 08:08 | PCM.PN ---
<Markell Pedroza - Last Filed: 08/28/20 10:22> - General Info Date of Service: 08/28/20 Subjective Update: No complaints at bedside this morning. Urinated overnight but no bowel movements. Denies any fevers, chills, SOB, chest pain, nausea or vomiting. - Patient Data Vitals - Most Recent: Last Vital Signs Temp 35.9 C L 08/28/20 04:35 Pulse 55 L 08/28/20 04:35 Resp 18 08/28/20 04:35 BP 108/45 L 08/27/20 23:45 Pulse Ox 94 L 08/28/20 04:35 Weight - Most Recent: 83.416 kg I&O - Last 24 Hours: Intake & Output 08/27/20 08/28/20 08/28/20 22:59 06:59 14:59 Intake Total 1145 50 Output Total 150 Balance 995 50 Lab Results Last 24 Hours: Laboratory Results - last 24 hr 08/27/20 08/27/20 08/27/20 Range/Units 15:06 15:06 15:06 WBC 9.86 (4.0-11.0) K/uL RBC 4.44 (4.30-5.90) M/uL Hgb 12.8 (12.0-16.0) g/dL Hct 38.7 (36.0-46.0) % MCV 87.2 (80.0-98.0) fL MCH 28.8 (27.0-32.0) pg MCHC 33.1 (31.0-37.0) g/dL RDW Std Deviation 48.6 (28.0-62.0) fl RDW Coeff of Geo 15 (11.0-15.0) % Plt Count 250 (150-400) K/uL MPV 10.40 (7.40-12.00) fL Neut % (Auto) 74.9 (48.0-80.0) % Lymph % (Auto) 17.4 (16.0-40.0) % [place] % (Auto) 6.7 (0.0-15.0) % Eos % (Auto) 0.8 (0.0-7.0) % Baso % (Auto) 0.2 (0.0-1.5) % Neut # (Auto) 7.4 H (1.4-5.7) K/uL Lymph # (Auto) 1.7 (0.6-2.4) K/uL [place] # (Auto) 0.7 (0.0-0.8) K/uL Eos # (Auto) 0.1 (0.0-0.7) K/uL Baso # (Auto) 0.0 (0.0-0.1) K/uL Nucleated RBC % 0.0 /100WBC Nucleated RBCs # 0 K/uL INR Sodium 136 (136-145) mmol/L Potassium 4.6 (3.5-5.1) mmol/L Chloride 100 (98-107) mmol/L Carbon Dioxide 22.1 (21.0-32.0) mmol/L BUN 64 H (7.0-18.0) mg/dL Creatinine 2.3 H (0.6-1.0) mg/dL Est Cr Clr Drug Dosing 16.44 mL/min Estimated GFR (MDRD) 20.1 ml/min Glucose 106 (74-106) mg/dL Calcium 10.5 H (8.5-10.1) mg/dL Total Bilirubin 0.2 (0.2-1.0) mg/dL AST 32 (15-37) IU/L ALT 17 (14-63) IU/L Alkaline Phosphatase 92 (46-116) U/L B-Natriuretic Peptide 71 (<100) PG/ML Total Protein 6.1 L (6.4-8.2) g/dL Albumin 2.9 L (3.4-5.0) g/dL Globulin 3.2 (2.6-4.0) g/dL Albumin/Globulin Ratio 0.9 (0.9-1.6) Urine Color Urine Appearance Urine pH (5.0-8.0) Ur Specific [place] (1.001-1.035) Urine Protein (NEGATIVE) mg/dL Urine Glucose (UA) (NEGATIVE) mg/dL Urine Ketones (NEGATIVE) mg/dL Urine Occult Blood (NEGATIVE) Urine Nitrite (NEGATIVE) Urine Bilirubin (NEGATIVE) Urine Urobilinogen (<2.0) EU/dL Ur Leukocyte Esterase (NEGATIVE) Urine RBC (0-2/HPF) Urine WBC (0-5/HPF) Ur Epithelial Cells (NONE-FEW) Urine Bacteria (NEGATIVE) Urine Mucus (NONE-MOD) SARS-CoV-2 RNA (GIANLUCA) (NEGATIVE) 08/27/20 08/27/20 08/28/20 Range/Units 16:08 20:05 01:00 WBC (4.0-11.0) K/uL RBC (4.30-5.90) M/uL Hgb (12.0-16.0) g/dL Hct (36.0-46.0) % MCV (80.0-98.0) fL MCH (27.0-32.0) pg MCHC (31.0-37.0) g/dL RDW Std Deviation (28.0-62.0) fl RDW Coeff of Geo (11.0-15.0) % Plt Count (150-400) K/uL MPV (7.40-12.00) fL Neut % (Auto) (48.0-80.0) % Lymph % (Auto) (16.0-40.0) % [place] % (Auto) (0.0-15.0) % Eos % (Auto) (0.0-7.0) % Baso % (Auto) (0.0-1.5) % Neut # (Auto) (1.4-5.7) K/uL Lymph # (Auto) (0.6-2.4) K/uL [place] # (Auto) (0.0-0.8) K/uL Eos # (Auto) (0.0-0.7) K/uL Baso # (Auto) (0.0-0.1) K/uL Nucleated RBC % /100WBC Nucleated RBCs # K/uL INR 13.48 H* Sodium (136-145) mmol/L Potassium (3.5-5.1) mmol/L Chloride (98-107) mmol/L Carbon Dioxide (21.0-32.0) mmol/L BUN (7.0-18.0) mg/dL Creatinine (0.6-1.0) mg/dL Est Cr Clr Drug Dosing mL/min Estimated GFR (MDRD) ml/min Glucose (74-106) mg/dL Calcium (8.5-10.1) mg/dL Total Bilirubin (0.2-1.0) mg/dL AST (15-37) IU/L ALT (14-63) IU/L Alkaline Phosphatase (46-116) U/L B-Natriuretic Peptide (<100) PG/ML Total Protein (6.4-8.2) g/dL Albumin (3.4-5.0) g/dL Globulin (2.6-4.0) g/dL Albumin/Globulin Ratio (0.9-1.6) Urine Color YELLOW Urine Appearance CLEAR Urine pH 5.0 (5.0-8.0) Ur Specific [place] 1.025 (1.001-1.035) Urine Protein NEGATIVE (NEGATIVE) mg/dL Urine Glucose (UA) NEGATIVE (NEGATIVE) mg/dL Urine Ketones NEGATIVE (NEGATIVE) mg/dL Urine Occult Blood NEGATIVE (NEGATIVE) Urine Nitrite NEGATIVE (NEGATIVE) Urine Bilirubin NEGATIVE (NEGATIVE) Urine Urobilinogen 0.2 (<2.0) EU/dL Ur Leukocyte Esterase SMALL H (NEGATIVE) Urine RBC 0-1 (0-2/HPF) Urine WBC 3-7 (0-5/HPF) Ur Epithelial Cells OCCASIONAL (NONE-FEW) Urine Bacteria 1+ H (NEGATIVE) Urine Mucus LIGHT (NONE-MOD) SARS-CoV-2 RNA (GIANLUCA) NEGATIVE (NEGATIVE) 08/28/20 08/28/20 08/28/20 Range/Units 04:55 04:55 04:55 WBC 8.50 (4.0-11.0) K/uL RBC 4.00 L (4.30-5.90) M/uL Hgb 11.2 L (12.0-16.0) g/dL Hct 34.7 L (36.0-46.0) % MCV 86.8 (80.0-98.0) fL MCH 28.0 (27.0-32.0) pg MCHC 32.3 (31.0-37.0) g/dL RDW Std Deviation 48.3 (28.0-62.0) fl RDW Coeff of Geo 15 (11.0-15.0) % Plt Count 247 (150-400) K/uL MPV 10.10 (7.40-12.00) fL Neut % (Auto) 66.1 (48.0-80.0) % Lymph % (Auto) 21.5 (16.0-40.0) % [place] % (Auto) 10.4 (0.0-15.0) % Eos % (Auto) 1.8 (0.0-7.0) % Baso % (Auto) 0.2 (0.0-1.5) % Neut # (Auto) 5.6 (1.4-5.7) K/uL Lymph # (Auto) 1.8 (0.6-2.4) K/uL [place] # (Auto) 0.9 H (0.0-0.8) K/uL Eos # (Auto) 0.2 (0.0-0.7) K/uL Baso # (Auto) 0.0 (0.0-0.1) K/uL Nucleated RBC % 0.0 /100WBC Nucleated RBCs # 0 K/uL INR 3.58 Sodium 134 L (136-145) mmol/L Potassium 4.4 (3.5-5.1) mmol/L Chloride 101 (98-107) mmol/L Carbon Dioxide 21.3 (21.0-32.0) mmol/L BUN 63 H (7.0-18.0) mg/dL Creatinine 2.1 H (0.6-1.0) mg/dL Est Cr Clr Drug Dosing 18.70 mL/min Estimated GFR (MDRD) 22.3 ml/min Glucose 75 (74-106) mg/dL Calcium 9.8 (8.5-10.1) mg/dL Total Bilirubin 0.3 (0.2-1.0) mg/dL AST 30 (15-37) IU/L ALT 15 (14-63) IU/L Alkaline Phosphatase 77 (46-116) U/L B-Natriuretic Peptide (<100) PG/ML Total Protein 5.2 L (6.4-8.2) g/dL Albumin 2.4 L (3.4-5.0) g/dL Globulin 2.8 (2.6-4.0) g/dL Albumin/Globulin Ratio 0.9 (0.9-1.6) Urine Color Urine Appearance Urine pH (5.0-8.0) Ur Specific [place] (1.001-1.035) Urine Protein (NEGATIVE) mg/dL Urine Glucose (UA) (NEGATIVE) mg/dL Urine Ketones (NEGATIVE) mg/dL Urine Occult Blood (NEGATIVE) Urine Nitrite (NEGATIVE) Urine Bilirubin (NEGATIVE) Urine Urobilinogen (<2.0) EU/dL Ur Leukocyte Esterase (NEGATIVE) Urine RBC (0-2/HPF) Urine WBC (0-5/HPF) Ur Epithelial Cells (NONE-FEW) Urine Bacteria (NEGATIVE) Urine Mucus (NONE-MOD) SARS-CoV-2 RNA (GIANLUCA) (NEGATIVE) Med Orders - Current: Current Medications Acetaminophen (Tylenol) 650 mg PO Q4H PRN PRN Reason: Pain (Mild 1-3)/fever Last Admin: 08/28/20 03:02 Dose: 650 mg Documented by: Gabapentin (Neurontin) 200 mg PO BEDTIME [facility] Last Admin: 08/27/20 21:40 Dose: 200 mg Documented by: Pantoprazole Sodium 40 mg/ (Sodium Chloride) 10 mls @ 300 mls/hr IVPUSH DAILY [facility] Last Admin: 08/27/20 21:34 Dose: 300 mls/hr Documented by: Lactated Ringer's (Ringers, Lactated) 1,000 mls @ 75 mls/hr IV CONTINUOUS ONE Stop: 08/28/20 08:59 Last Admin: 08/27/20 21:07 Dose: 75 mls/hr Documented by: Ceftriaxone Sodium/Dextrose 1 (gm/ Premix) 50 mls @ 100 mls/hr IV Q24H [facility] Last Admin: 08/28/20 06:33 Dose: 100 mls/hr Documented by: Morphine Sulfate (Morphine) 2 mg IVPUSH Q4H PRN PRN Reason: Pain Ondansetron HCl (Zofran) 4 mg IVPUSH Q4H PRN PRN Reason: Nausea Warfarin Sodium (Coumadin Ask) 1 each PO Q24H [facility] Discontinued Medications Sodium Chloride (Normal Saline) 1,000 mls @ 75 mls/hr IV STAT ONE Stop: 08/28/20 05:33 Last Admin: 08/27/20 16:23 Dose: 75 mls/hr Documented by: Lactated Ringer's (Ringers, Lactated) 500 mls @ 999 mls/hr IV BOLUS ONE Stop: 08/27/20 19:37 Last Admin: 08/27/20 19:58 Dose: 999 mls/hr Documented by: Phytonadione 2.5 mg/ Sodium (Chloride) 50.25 mls @ 100 mls/hr IV NOW ONE Stop: 08/27/20 23:32 Last Admin: 08/28/20 00:16 Dose: 100 mls/hr Documented by: No Warfarin Dose (Needed For 08/27/2020) 0 each PO ONETIME ONE Stop: 08/27/20 21:16 Last Admin: 08/27/20 21:25 Dose: Not Given Documented by: Ondansetron HCl (Zofran) 4 mg IVPUSH ONETIME ONE Stop: 08/27/20 16:15 Last Admin: 08/27/20 16:23 Dose: 4 mg Documented by: Phytonadione (Mephyton) 2.5 mg PO ONETIME ONE Stop: 08/27/20 22:11 Last Admin: 08/28/20 02:47 Dose: Not Given Documented by: - Exam General: Alert, Oriented, Cooperative, No Acute Distress Lungs: Clear to Auscultation, Normal Respiratory Effort Cardiovascular: Regular Rate, Regular Rhythm GI/Abdominal Exam: Normal Bowel Sounds, Soft, Non-Tender, Distended. No: Guarding, Rigid, Rebound Extremities: Other (trace pitting edema b/l) - Patient Data Lab Results Last 24 hrs: Laboratory Results - last 24 hr 08/27/20 08/27/20 08/27/20 Range/Units 15:06 15:06 15:06 WBC 9.86 (4.0-11.0) K/uL RBC 4.44 (4.30-5.90) M/uL Hgb 12.8 (12.0-16.0) g/dL Hct 38.7 (36.0-46.0) % MCV 87.2 (80.0-98.0) fL MCH 28.8 (27.0-32.0) pg MCHC 33.1 (31.0-37.0) g/dL RDW Std Deviation 48.6 (28.0-62.0) fl RDW Coeff of Geo 15 (11.0-15.0) % Plt Count 250 (150-400) K/uL MPV 10.40 (7.40-12.00) fL Neut % (Auto) 74.9 (48.0-80.0) % Lymph % (Auto) 17.4 (16.0-40.0) % [place] % (Auto) 6.7 (0.0-15.0) % Eos % (Auto) 0.8 (0.0-7.0) % Baso % (Auto) 0.2 (0.0-1.5) % Neut # (Auto) 7.4 H (1.4-5.7) K/uL Lymph # (Auto) 1.7 (0.6-2.4) K/uL [place] # (Auto) 0.7 (0.0-0.8) K/uL Eos # (Auto) 0.1 (0.0-0.7) K/uL Baso # (Auto) 0.0 (0.0-0.1) K/uL Nucleated RBC % 0.0 /100WBC Nucleated RBCs # 0 K/uL INR Sodium 136 (136-145) mmol/L Potassium 4.6 (3.5-5.1) mmol/L Chloride 100 (98-107) mmol/L Carbon Dioxide 22.1 (21.0-32.0) mmol/L BUN 64 H (7.0-18.0) mg/dL Creatinine 2.3 H (0.6-1.0) mg/dL Est Cr Clr Drug Dosing 16.44 mL/min Estimated GFR (MDRD) 20.1 ml/min Glucose 106 (74-106) mg/dL Calcium 10.5 H (8.5-10.1) mg/dL Total Bilirubin 0.2 (0.2-1.0) mg/dL AST 32 (15-37) IU/L ALT 17 (14-63) IU/L Alkaline Phosphatase 92 (46-116) U/L B-Natriuretic Peptide 71 (<100) PG/ML Total Protein 6.1 L (6.4-8.2) g/dL Albumin 2.9 L (3.4-5.0) g/dL Globulin 3.2 (2.6-4.0) g/dL Albumin/Globulin Ratio 0.9 (0.9-1.6) Urine Color Urine Appearance Urine pH (5.0-8.0) Ur Specific [place] (1.001-1.035) Urine Protein (NEGATIVE) mg/dL Urine Glucose (UA) (NEGATIVE) mg/dL Urine Ketones (NEGATIVE) mg/dL Urine Occult Blood (NEGATIVE) Urine Nitrite (NEGATIVE) Urine Bilirubin (NEGATIVE) Urine Urobilinogen (<2.0) EU/dL Ur Leukocyte Esterase (NEGATIVE) Urine RBC (0-2/HPF) Urine WBC (0-5/HPF) Ur Epithelial Cells (NONE-FEW) Urine Bacteria (NEGATIVE) Urine Mucus (NONE-MOD) SARS-CoV-2 RNA (GIANLUCA) (NEGATIVE) 08/27/20 08/27/20 08/28/20 Range/Units 16:08 20:05 01:00 WBC (4.0-11.0) K/uL RBC (4.30-5.90) M/uL Hgb (12.0-16.0) g/dL Hct (36.0-46.0) % MCV (80.0-98.0) fL MCH (27.0-32.0) pg MCHC (31.0-37.0) g/dL RDW Std Deviation (28.0-62.0) fl RDW Coeff of Geo (11.0-15.0) % Plt Count (150-400) K/uL MPV (7.40-12.00) fL Neut % (Auto) (48.0-80.0) % Lymph % (Auto) (16.0-40.0) % [place] % (Auto) (0.0-15.0) % Eos % (Auto) (0.0-7.0) % Baso % (Auto) (0.0-1.5) % Neut # (Auto) (1.4-5.7) K/uL Lymph # (Auto) (0.6-2.4) K/uL [place] # (Auto) (0.0-0.8) K/uL Eos # (Auto) (0.0-0.7) K/uL Baso # (Auto) (0.0-0.1) K/uL Nucleated RBC % /100WBC Nucleated RBCs # K/uL INR 13.48 H* Sodium (136-145) mmol/L Potassium (3.5-5.1) mmol/L Chloride (98-107) mmol/L Carbon Dioxide (21.0-32.0) mmol/L BUN (7.0-18.0) mg/dL Creatinine (0.6-1.0) mg/dL Est Cr Clr Drug Dosing mL/min Estimated GFR (MDRD) ml/min Glucose (74-106) mg/dL Calcium (8.5-10.1) mg/dL Total Bilirubin (0.2-1.0) mg/dL AST (15-37) IU/L ALT (14-63) IU/L Alkaline Phosphatase (46-116) U/L B-Natriuretic Peptide (<100) PG/ML Total Protein (6.4-8.2) g/dL Albumin (3.4-5.0) g/dL Globulin (2.6-4.0) g/dL Albumin/Globulin Ratio (0.9-1.6) Urine Color YELLOW Urine Appearance CLEAR Urine pH 5.0 (5.0-8.0) Ur Specific [place] 1.025 (1.001-1.035) Urine Protein NEGATIVE (NEGATIVE) mg/dL Urine Glucose (UA) NEGATIVE (NEGATIVE) mg/dL Urine Ketones NEGATIVE (NEGATIVE) mg/dL Urine Occult Blood NEGATIVE (NEGATIVE) Urine Nitrite NEGATIVE (NEGATIVE) Urine Bilirubin NEGATIVE (NEGATIVE) Urine Urobilinogen 0.2 (<2.0) EU/dL Ur Leukocyte Esterase SMALL H (NEGATIVE) Urine RBC 0-1 (0-2/HPF) Urine WBC 3-7 (0-5/HPF) Ur Epithelial Cells OCCASIONAL (NONE-FEW) Urine Bacteria 1+ H (NEGATIVE) Urine Mucus LIGHT (NONE-MOD) SARS-CoV-2 RNA (GIANLUCA) NEGATIVE (NEGATIVE) 08/28/20 08/28/20 08/28/20 Range/Units 04:55 04:55 04:55 WBC 8.50 (4.0-11.0) K/uL RBC 4.00 L (4.30-5.90) M/uL Hgb 11.2 L (12.0-16.0) g/dL Hct 34.7 L (36.0-46.0) % MCV 86.8 (80.0-98.0) fL MCH 28.0 (27.0-32.0) pg MCHC 32.3 (31.0-37.0) g/dL RDW Std Deviation 48.3 (28.0-62.0) fl RDW Coeff of Geo 15 (11.0-15.0) % Plt Count 247 (150-400) K/uL MPV 10.10 (7.40-12.00) fL Neut % (Auto) 66.1 (48.0-80.0) % Lymph % (Auto) 21.5 (16.0-40.0) % [place] % (Auto) 10.4 (0.0-15.0) % Eos % (Auto) 1.8 (0.0-7.0) % Baso % (Auto) 0.2 (0.0-1.5) % Neut # (Auto) 5.6 (1.4-5.7) K/uL Lymph # (Auto) 1.8 (0.6-2.4) K/uL [place] # (Auto) 0.9 H (0.0-0.8) K/uL Eos # (Auto) 0.2 (0.0-0.7) K/uL Baso # (Auto) 0.0 (0.0-0.1) K/uL Nucleated RBC % 0.0 /100WBC Nucleated RBCs # 0 K/uL INR 3.58 Sodium 134 L (136-145) mmol/L Potassium 4.4 (3.5-5.1) mmol/L Chloride 101 (98-107) mmol/L Carbon Dioxide 21.3 (21.0-32.0) mmol/L BUN 63 H (7.0-18.0) mg/dL Creatinine 2.1 H (0.6-1.0) mg/dL Est Cr Clr Drug Dosing 18.70 mL/min Estimated GFR (MDRD) 22.3 ml/min Glucose 75 (74-106) mg/dL Calcium 9.8 (8.5-10.1) mg/dL Total Bilirubin 0.3 (0.2-1.0) mg/dL AST 30 (15-37) IU/L ALT 15 (14-63) IU/L Alkaline Phosphatase 77 (46-116) U/L B-Natriuretic Peptide (<100) PG/ML Total Protein 5.2 L (6.4-8.2) g/dL Albumin 2.4 L (3.4-5.0) g/dL Globulin 2.8 (2.6-4.0) g/dL Albumin/Globulin Ratio 0.9 (0.9-1.6) Urine Color Urine Appearance Urine pH (5.0-8.0) Ur Specific [place] (1.001-1.035) Urine Protein (NEGATIVE) mg/dL Urine Glucose (UA) (NEGATIVE) mg/dL Urine Ketones (NEGATIVE) mg/dL Urine Occult Blood (NEGATIVE) Urine Nitrite (NEGATIVE) Urine Bilirubin (NEGATIVE) Urine Urobilinogen (<2.0) EU/dL Ur Leukocyte Esterase (NEGATIVE) Urine RBC (0-2/HPF) Urine WBC (0-5/HPF) Ur Epithelial Cells (NONE-FEW) Urine Bacteria (NEGATIVE) Urine Mucus (NONE-MOD) SARS-CoV-2 RNA (GIANLUCA) (NEGATIVE) Result Diagrams: 08/28/20 04:55 08/28/20 04:55 Sepsis Event Note - Evaluation Sepsis Screening Result: No Definite Risk - Focused Exam Vital Signs: Vital Signs Temp Pulse Resp BP Pulse Ox 08/28/20 04:35 35.9 C L 55 L 18 94 L 08/27/20 23:45 36.4 C 53 L 18 108/45 L 95 - Problem List & Annotations (1) Peritoneal carcinomatosis SNOMED Code(s): 605527114, 114598732, 473559198 Code(s): C78.6 - SECONDARY MALIGNANT NEOPLASM OF RETROPERITON AND PERITONEUM Status: Acute Current Visit: Yes (2) Breast cancer SNOMED Code(s): 589461436 Code(s): C50.919 - MALIGNANT NEOPLASM OF UNSP SITE OF UNSPECIFIED FEMALE BREAST Status: Acute Current Visit: Yes (3) Ascites SNOMED Code(s): 859475718 Code(s): R18.8 - OTHER ASCITES Status: Acute Current Visit: Yes (4) Atrial fibrillation SNOMED Code(s): 36175054 Code(s): I48.91 - UNSPECIFIED ATRIAL FIBRILLATION Status: Acute Current Visit: Yes (5) KAROL (acute kidney injury) SNOMED Code(s): 80734284, 70689604 Code(s): N17.9 - ACUTE KIDNEY FAILURE, UNSPECIFIED Status: Acute Current Visit: Yes (6) HTN (hypertension) SNOMED Code(s): 47556321 Code(s): I10 - ESSENTIAL (PRIMARY) HYPERTENSION Status: Acute Current Visit: Yes (7) Peripheral neuropathy SNOMED Code(s): 450204114 Code(s): G62.9 - POLYNEUROPATHY, UNSPECIFIED Status: Acute Current Visit: Yes (8) Supratherapeutic INR SNOMED Code(s): 680113343 Code(s): R79.1 - ABNORMAL COAGULATION PROFILE Status: Acute Current Visit: Yes (9) UTI (urinary tract infection) SNOMED Code(s): 78482663 Code(s): N39.0 - URINARY TRACT INFECTION, SITE NOT SPECIFIED Status: Acute Current Visit: Yes - Problem List Review Problem List Initiated/Reviewed/Updated: Yes - My Orders Last 24 Hours: My Active Orders 08/27/20 Dinner Clear Liquid Diet [DIET] 08/27/20 19:02 Oxygen Therapy [RC] PRN Up ad Koki [RC] ASDIRECTED VTE/DVT Education [RC] PER UNIT ROUTINE Vital Signs [RC] Q4H Acetaminophen [TylenoL] 650 mg PO Q4H PRN Ondansetron [Zofran] 4 mg IVPUSH Q4H PRN Resuscitation Status Routine 08/27/20 19:04 Antiembolic Devices [RC] PER UNIT ROUTINE Morphine 2 mg IVPUSH Q4H PRN SCD [Sequential Compression Device] [OM.PC] Routine 08/27/20 19:05 Telemetry Monitoring [Cardiac Monitoring] [RC] Q8H 08/27/20 19:15 Pantoprazole [ProTONIX IV] 40 mg Sodium Chloride 0.9% [Normal Saline] 10 ml IVPUSH DAILY 08/27/20 19:40 Lactated Ringers [Ringers, Lactated] 1,000 ml IV CONTINUOUS 08/27/20 21:00 Gabapentin [Neurontin] 200 mg PO BEDTIME 08/28/20 07:28 Intake and Output Strict [RC] ASDIRECTED 08/28/20 14:00 Warfarin Dosing [Coumadin Ask] 1 each PO Q24H 08/29/20 05:11 INR,PT,PROTHROMBIN TIME [COAG] DAILY 08/30/20 05:11 INR,PT,PROTHROMBIN TIME [COAG] DAILY 08/31/20 05:11 INR,PT,PROTHROMBIN TIME [COAG] DAILY 09/01/20 05:11 INR,PT,PROTHROMBIN TIME [COAG] DAILY - Plan Plan:: Assessment and Plan: 1. 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 Continue zofran prn, IV PPI and IV morphine prn pain. - CT abdomen showed extensive mesenteric and retroperitoneal lymphadenopathy, soft tissue mass in the mesentery (11 x 7.7 x 8.6 cm), extensive peritoneal carcinomatosis throughout the abdomen and abdominal pelvic ascites. - Patient has history of breast cancer in remission since 2010. - Will need outpatient oncology follow-up. - Will contact interventional radiology to see if CT guided biopsy of peritoneal mass and possible paracentesis can be done today. If not, will set up referral for outpatient procedure. 2. KAROL, improving: - Creatinine is 2.1 this morning. Will give IV LR 500 cc bolus x 1 and continue IV LR @ 75 cc/hr maintenance and discontinue fluids this evening. 3. Atrial fibrillation, on chronic anticoagulation with supratherapeutic INR: - Pharmacy consulted for warfarin therapy. - Patient on telemetry. 4. UTI: - Will treat with Rocephin. 5. Past medical history of breast cancer, HTN and peripheral neuropathy: - Continue home medications. 6. DVT prophylaxis: - Patient on warfarin. <Tayla Fierro - Last Filed: 08/29/20 00:26> - General Info Subjective Update: I have seen and evaluated the patient and agree with the residents note unless specified in my note - Patient Data Vitals - Most Recent: Last Vital Signs Temp 36.8 C 08/28/20 20:00 Pulse 62 08/28/20 20:00 Resp 18 08/28/20 20:00 BP 115/65 08/28/20 20:00 Pulse Ox 96 08/28/20 20:00 I&O - Last 24 Hours: Intake & Output 08/28/20 08/28/20 08/29/20 14:59 22:59 06:59 Intake Total 50 1136 Output Total 475 Balance 50 661 Lab Results Last 24 Hours: Laboratory Results - last 24 hr 08/28/20 08/28/20 08/28/20 Range/Units 01:00 04:55 04:55 WBC 8.50 (4.0-11.0) K/uL RBC 4.00 L (4.30-5.90) M/uL Hgb 11.2 L (12.0-16.0) g/dL Hct 34.7 L (36.0-46.0) % MCV 86.8 (80.0-98.0) fL MCH 28.0 (27.0-32.0) pg MCHC 32.3 (31.0-37.0) g/dL RDW Std Deviation 48.3 (28.0-62.0) fl RDW Coeff of Geo 15 (11.0-15.0) % Plt Count 247 (150-400) K/uL MPV 10.10 (7.40-12.00) fL Neut % (Auto) 66.1 (48.0-80.0) % Lymph % (Auto) 21.5 (16.0-40.0) % [place] % (Auto) 10.4 (0.0-15.0) % Eos % (Auto) 1.8 (0.0-7.0) % Baso % (Auto) 0.2 (0.0-1.5) % Neut # (Auto) 5.6 (1.4-5.7) K/uL Lymph # (Auto) 1.8 (0.6-2.4) K/uL [place] # (Auto) 0.9 H (0.0-0.8) K/uL Eos # (Auto) 0.2 (0.0-0.7) K/uL Baso # (Auto) 0.0 (0.0-0.1) K/uL Nucleated RBC % 0.0 /100WBC Nucleated RBCs # 0 K/uL INR Sodium 134 L (136-145) mmol/L Potassium 4.4 (3.5-5.1) mmol/L Chloride 101 (98-107) mmol/L Carbon Dioxide 21.3 (21.0-32.0) mmol/L BUN 63 H (7.0-18.0) mg/dL Creatinine 2.1 H (0.6-1.0) mg/dL Est Cr Clr Drug Dosing 18.70 mL/min Estimated GFR (MDRD) 22.3 ml/min Glucose 75 (74-106) mg/dL Calcium 9.8 (8.5-10.1) mg/dL Total Bilirubin 0.3 (0.2-1.0) mg/dL AST 30 (15-37) IU/L ALT 15 (14-63) IU/L Alkaline Phosphatase 77 (46-116) U/L Total Protein 5.2 L (6.4-8.2) g/dL Albumin 2.4 L (3.4-5.0) g/dL Globulin 2.8 (2.6-4.0) g/dL Albumin/Globulin Ratio 0.9 (0.9-1.6) Urine Color YELLOW Urine Appearance CLEAR Urine pH 5.0 (5.0-8.0) Ur Specific [place] 1.025 (1.001-1.035) Urine Protein NEGATIVE (NEGATIVE) mg/dL Urine Glucose (UA) NEGATIVE (NEGATIVE) mg/dL Urine Ketones NEGATIVE (NEGATIVE) mg/dL Urine Occult Blood NEGATIVE (NEGATIVE) Urine Nitrite NEGATIVE (NEGATIVE) Urine Bilirubin NEGATIVE (NEGATIVE) Urine Urobilinogen 0.2 (<2.0) EU/dL Ur Leukocyte Esterase SMALL H (NEGATIVE) Urine RBC 0-1 (0-2/HPF) Urine WBC 3-7 (0-5/HPF) Ur Epithelial Cells OCCASIONAL (NONE-FEW) Urine Bacteria 1+ H (NEGATIVE) Urine Mucus LIGHT (NONE-MOD) 08/28/20 Range/Units 04:55 WBC (4.0-11.0) K/uL RBC (4.30-5.90) M/uL Hgb (12.0-16.0) g/dL Hct (36.0-46.0) % MCV (80.0-98.0) fL MCH (27.0-32.0) pg MCHC (31.0-37.0) g/dL RDW Std Deviation (28.0-62.0) fl RDW Coeff of Geo (11.0-15.0) % Plt Count (150-400) K/uL MPV (7.40-12.00) fL Neut % (Auto) (48.0-80.0) % Lymph % (Auto) (16.0-40.0) % [place] % (Auto) (0.0-15.0) % Eos % (Auto) (0.0-7.0) % Baso % (Auto) (0.0-1.5) % Neut # (Auto) (1.4-5.7) K/uL Lymph # (Auto) (0.6-2.4) K/uL [place] # (Auto) (0.0-0.8) K/uL Eos # (Auto) (0.0-0.7) K/uL Baso # (Auto) (0.0-0.1) K/uL Nucleated RBC % /100WBC Nucleated RBCs # K/uL INR 3.58 Sodium (136-145) mmol/L Potassium (3.5-5.1) mmol/L Chloride (98-107) mmol/L Carbon Dioxide (21.0-32.0) mmol/L BUN (7.0-18.0) mg/dL Creatinine (0.6-1.0) mg/dL Est Cr Clr Drug Dosing mL/min Estimated GFR (MDRD) ml/min Glucose (74-106) mg/dL Calcium (8.5-10.1) mg/dL Total Bilirubin (0.2-1.0) mg/dL AST (15-37) IU/L ALT (14-63) IU/L Alkaline Phosphatase (46-116) U/L Total Protein (6.4-8.2) g/dL Albumin (3.4-5.0) g/dL Globulin (2.6-4.0) g/dL Albumin/Globulin Ratio (0.9-1.6) Urine Color Urine Appearance Urine pH (5.0-8.0) Ur Specific [place] (1.001-1.035) Urine Protein (NEGATIVE) mg/dL Urine Glucose (UA) (NEGATIVE) mg/dL Urine Ketones (NEGATIVE) mg/dL Urine Occult Blood (NEGATIVE) Urine Nitrite (NEGATIVE) Urine Bilirubin (NEGATIVE) Urine Urobilinogen (<2.0) EU/dL Ur Leukocyte Esterase (NEGATIVE) Urine RBC (0-2/HPF) Urine WBC (0-5/HPF) Ur Epithelial Cells (NONE-FEW) Urine Bacteria (NEGATIVE) Urine Mucus (NONE-MOD) Med Orders - Current: Current Medications Acetaminophen (Tylenol) 650 mg PO Q4H PRN PRN Reason: Pain (Mild 1-3)/fever Last Admin: 08/28/20 18:45 Dose: 650 mg Documented by: Gabapentin (Neurontin) 200 mg PO BEDTIME [facility] Last Admin: 08/28/20 20:16 Dose: 200 mg Documented by: Pantoprazole Sodium 40 mg/ (Sodium Chloride) 10 mls @ 300 mls/hr IVPUSH DAILY [facility] Last Admin: 08/28/20 09:33 Dose: 300 mls/hr Documented by: Ceftriaxone Sodium/Dextrose 1 (gm/ Premix) 50 mls @ 100 mls/hr IV Q24H [facility] Last Admin: 08/28/20 06:33 Dose: 100 mls/hr Documented by: Lactated Ringer's (Ringers, Lactated) 500 mls @ 999 mls/hr IV .BOLUS ONE Stop: 08/29/20 00:30 Last Admin: 08/29/20 00:07 Dose: 999 mls/hr Documented by: Morphine Sulfate (Morphine) 2 mg IVPUSH Q4H PRN PRN Reason: Pain Last Admin: 08/28/20 23:55 Dose: 2 mg Documented by: Ondansetron HCl (Zofran) 4 mg IVPUSH Q4H PRN PRN Reason: Nausea Zolpidem Tartrate 5 (Mg) 1 each PO BEDTIME PRN PRN Reason: Insomnia Sotalol HCl (Betapace) 120 mg PO DAILY [facility] Last Admin: 08/28/20 09:28 Dose: Not Given Documented by: Sotalol HCl (Betapace) 80 mg PO DAILY [facility] Last Admin: 08/28/20 09:34 Dose: 80 mg Documented by: Warfarin Sodium (Coumadin Ask) 1 each PO Q24H [facility] Last Admin: 08/28/20 15:44 Dose: Not Given Documented by: Discontinued Medications Sodium Chloride (Normal Saline) 1,000 mls @ 75 mls/hr IV STAT ONE Stop: 08/28/20 05:33 Last Admin: 08/27/20 16:23 Dose: 75 mls/hr Documented by: Lactated Ringer's (Ringers, Lactated) 500 mls @ 999 mls/hr IV BOLUS ONE Stop: 08/27/20 19:37 Last Admin: 08/27/20 19:58 Dose: 999 mls/hr Documented by: Lactated Ringer's (Ringers, Lactated) 1,000 mls @ 75 mls/hr IV CONTINUOUS ONE Stop: 08/28/20 08:59 Last Admin: 08/27/20 21:07 Dose: 75 mls/hr Documented by: Phytonadione 2.5 mg/ Sodium (Chloride) 50.25 mls @ 100 mls/hr IV NOW ONE Stop: 08/27/20 23:32 Last Admin: 08/28/20 00:16 Dose: 100 mls/hr Documented by: Lactated Ringer's (Ringers, Lactated) 500 mls @ 999 mls/hr IV .BOLUS ONE Stop: 08/28/20 10:03 Last Admin: 08/28/20 10:01 Dose: 999 mls/hr Documented by: Lactated Ringer's (Ringers, Lactated) 500 mls @ 999 mls/hr IV .BOLUS ONE Stop: 08/28/20 18:47 Last Admin: 08/28/20 18:41 Dose: 999 mls/hr Documented by: No Warfarin Dose (Needed For 08/27/2020) 0 each PO ONETIME ONE Stop: 08/27/20 21:16 Last Admin: 08/27/20 21:25 Dose: Not Given Documented by: Ondansetron HCl (Zofran) 4 mg IVPUSH ONETIME ONE Stop: 08/27/20 16:15 Last Admin: 08/27/20 16:23 Dose: 4 mg Documented by: Phytonadione (Mephyton) 2.5 mg PO ONETIME ONE Stop: 08/27/20 22:11 Last Admin: 08/28/20 02:47 Dose: Not Given Documented by: - Patient Data Lab Results Last 24 hrs: Laboratory Results - last 24 hr 08/28/20 08/28/20 08/28/20 Range/Units 01:00 04:55 04:55 WBC 8.50 (4.0-11.0) K/uL RBC 4.00 L (4.30-5.90) M/uL Hgb 11.2 L (12.0-16.0) g/dL Hct 34.7 L (36.0-46.0) % MCV 86.8 (80.0-98.0) fL MCH 28.0 (27.0-32.0) pg MCHC 32.3 (31.0-37.0) g/dL RDW Std Deviation 48.3 (28.0-62.0) fl RDW Coeff of Geo 15 (11.0-15.0) % Plt Count 247 (150-400) K/uL MPV 10.10 (7.40-12.00) fL Neut % (Auto) 66.1 (48.0-80.0) % Lymph % (Auto) 21.5 (16.0-40.0) % [place] % (Auto) 10.4 (0.0-15.0) % Eos % (Auto) 1.8 (0.0-7.0) % Baso % (Auto) 0.2 (0.0-1.5) % Neut # (Auto) 5.6 (1.4-5.7) K/uL Lymph # (Auto) 1.8 (0.6-2.4) K/uL [place] # (Auto) 0.9 H (0.0-0.8) K/uL Eos # (Auto) 0.2 (0.0-0.7) K/uL Baso # (Auto) 0.0 (0.0-0.1) K/uL Nucleated RBC % 0.0 /100WBC Nucleated RBCs # 0 K/uL INR Sodium 134 L (136-145) mmol/L Potassium 4.4 (3.5-5.1) mmol/L Chloride 101 (98-107) mmol/L Carbon Dioxide 21.3 (21.0-32.0) mmol/L BUN 63 H (7.0-18.0) mg/dL Creatinine 2.1 H (0.6-1.0) mg/dL Est Cr Clr Drug Dosing 18.70 mL/min Estimated GFR (MDRD) 22.3 ml/min Glucose 75 (74-106) mg/dL Calcium 9.8 (8.5-10.1) mg/dL Total Bilirubin 0.3 (0.2-1.0) mg/dL AST 30 (15-37) IU/L ALT 15 (14-63) IU/L Alkaline Phosphatase 77 (46-116) U/L Total Protein 5.2 L (6.4-8.2) g/dL Albumin 2.4 L (3.4-5.0) g/dL Globulin 2.8 (2.6-4.0) g/dL Albumin/Globulin Ratio 0.9 (0.9-1.6) Urine Color YELLOW Urine Appearance CLEAR Urine pH 5.0 (5.0-8.0) Ur Specific [place] 1.025 (1.001-1.035) Urine Protein NEGATIVE (NEGATIVE) mg/dL Urine Glucose (UA) NEGATIVE (NEGATIVE) mg/dL Urine Ketones NEGATIVE (NEGATIVE) mg/dL Urine Occult Blood NEGATIVE (NEGATIVE) Urine Nitrite NEGATIVE (NEGATIVE) Urine Bilirubin NEGATIVE (NEGATIVE) Urine Urobilinogen 0.2 (<2.0) EU/dL Ur Leukocyte Esterase SMALL H (NEGATIVE) Urine RBC 0-1 (0-2/HPF) Urine WBC 3-7 (0-5/HPF) Ur Epithelial Cells OCCASIONAL (NONE-FEW) Urine Bacteria 1+ H (NEGATIVE) Urine Mucus LIGHT (NONE-MOD) 08/28/20 Range/Units 04:55 WBC (4.0-11.0) K/uL RBC (4.30-5.90) M/uL Hgb (12.0-16.0) g/dL Hct (36.0-46.0) % MCV (80.0-98.0) fL MCH (27.0-32.0) pg MCHC (31.0-37.0) g/dL RDW Std Deviation (28.0-62.0) fl RDW Coeff of Geo (11.0-15.0) % Plt Count (150-400) K/uL MPV (7.40-12.00) fL Neut % (Auto) (48.0-80.0) % Lymph % (Auto) (16.0-40.0) % [place] % (Auto) (0.0-15.0) % Eos % (Auto) (0.0-7.0) % Baso % (Auto) (0.0-1.5) % Neut # (Auto) (1.4-5.7) K/uL Lymph # (Auto) (0.6-2.4) K/uL [place] # (Auto) (0.0-0.8) K/uL Eos # (Auto) (0.0-0.7) K/uL Baso # (Auto) (0.0-0.1) K/uL Nucleated RBC % /100WBC Nucleated RBCs # K/uL INR 3.58 Sodium (136-145) mmol/L Potassium (3.5-5.1) mmol/L Chloride (98-107) mmol/L Carbon Dioxide (21.0-32.0) mmol/L BUN (7.0-18.0) mg/dL Creatinine (0.6-1.0) mg/dL Est Cr Clr Drug Dosing mL/min Estimated GFR (MDRD) ml/min Glucose (74-106) mg/dL Calcium (8.5-10.1) mg/dL Total Bilirubin (0.2-1.0) mg/dL AST (15-37) IU/L ALT (14-63) IU/L Alkaline Phosphatase (46-116) U/L Total Protein (6.4-8.2) g/dL Albumin (3.4-5.0) g/dL Globulin (2.6-4.0) g/dL Albumin/Globulin Ratio (0.9-1.6) Urine Color Urine Appearance Urine pH (5.0-8.0) Ur Specific [place] (1.001-1.035) Urine Protein (NEGATIVE) mg/dL Urine Glucose (UA) (NEGATIVE) mg/dL Urine Ketones (NEGATIVE) mg/dL Urine Occult Blood (NEGATIVE) Urine Nitrite (NEGATIVE) Urine Bilirubin (NEGATIVE) Urine Urobilinogen (<2.0) EU/dL Ur Leukocyte Esterase (NEGATIVE) Urine RBC (0-2/HPF) Urine WBC (0-5/HPF) Ur Epithelial Cells (NONE-FEW) Urine Bacteria (NEGATIVE) Urine Mucus (NONE-MOD) Result Diagrams: 08/28/20 04:55 08/28/20 04:55 Sepsis Event Note - Focused Exam Vital Signs: Vital Signs Temp Pulse Resp BP Pulse Ox Pulse Ox 08/28/20 20:00 36.8 C 62 18 115/65 96 96 08/28/20 16:00 36.3 C 55 L 16 107/53 L 94 L - My Orders Last 24 Hours: My Active Orders 08/28/20 06:15 cefTRIAXone [Rocephin in Dextrose,Iso-Osm 1 GM/50 ML] 1 gm Premix Bag 1 bag IV Q24H
[2020-08-28] MEDS ORDERED: ZOLPIDEM TARTRATE 5 MG PO PRN (08:09)
[2020-08-28] MEDS: Sotalol 80 MG Tab PO SCH ×2 (09:28→09:34)
[2020-08-28] MEDS ORDERED: Lactated Ringers 500 ML IV ONE ×2 (09:33→18:17)
[2020-08-28] MEDS: Pantoprazole 40 MG in Sodium Chloride 0.9% 10 ML IVPUSH SCH (09:33)
[2020-08-28] MEDS: Gabapentin 100 MG Cap PO SCH (20:16)
[2020-08-29] MEDS ORDERED: Lactated Ringers 500 ML IV ONE
[2020-08-29] MEDS: cefTRIAXone 1 GM in Premix Bag 1 BAG IV SCH (05:27)
[2020-08-29 06:13] LABS: POTASSIUM,K 4.3 mmol/L (3.5-5.1)
[2020-08-29 09:18] VITALS: BP 107/44; PULSE 64
[2020-08-29] MEDS: Sotalol 80 MG Tab PO SCH ×2 (10:01→10:15)
[2020-08-29] MEDS: Pantoprazole 40 MG in Sodium Chloride 0.9% 10 ML IVPUSH SCH (10:15)
--- NOTE | 2020-08-29 13:02 | PCM.DCSUM1 ---
<Markell Pedroza - Last Filed: 08/29/20 17:29> Discharge Summary - Hospital Course Free Text/Narrative:: 84-year-old female admitted for nausea and abdominal pain. She has a PMH of breast cancer (in remission since 2010), HTN, a-fib on warfarin and peripheral neuropathy. On admission, CT abdomen showed extensive mesenteric and retroperitoneal lymphadenopathy, soft tissue mass in the mesentery (11 x 7.7 x 8.6 cm), extensive peritoneal carcinomatosis throughout the abdomen and evidence of abdominal pelvic ascites. Oncology was contacted and stated patient would need biopsy prior to referral. Interventional radiologist at [facility] was contacted to setup outpatient CT guided biopsy of peritoneal mass and possible paracentesis. Clinic said they will contact patient with outpatient appointment date. Furthermore, creatinine was noted to be 2.3 on admission. Patient was given IV fluids and her creatinine improved slightly to 2.1. She was also noted to have supratherapeutic INR of 13.48 on admission and was given vitamin K. Pharmacy was consulted for warfarin therapy management during hospitalization. She was found to have a UTI and started on Rocephin. She remained hemodynamically stable throughout her hospital course and was able to tolerate oral diet and had bowel movements. Advised to drink 2L of water daily. Patient will be contacted by [facility] interventional radiology regarding appointment for CT guided biopsy of peritoneal mass and possible paracentesis. For UTI, patient discharged with 3 more days of keflex. Per case management, Richard [facility] will be consulted for home health. Per pharmacy, take warfarin 4 mg /Wed/Wed/Wed and take 2 mg on Wed/Wed/Wed. Recheck INR in 1 week when following-up with PCP Dr. Rand. - Discharge Data Discharge Date: 08/29/20 Discharge Disposition: Home, W Home Health Agency 06 Condition: Stable - Referral to Home Health Date of Face to Face Encounter: 08/29/20 Reason for Homebound Status: Weakness and deconditioning due to hospitalization for disease process. They are amble to ambulate less than 20 feet before needing to stop for a rest break. Primary Care Physician: Shona Rand, Skilled Need: Physical therapy: Strengthening due to weakness from recent hospitalization. RN to monitor: meducation education due to changed medications. - Discharge Diagnosis/Problem(s) (1) Peritoneal carcinomatosis SNOMED Code(s): 688224792, 402933182, 669204556 ICD Code: C78.6 - SECONDARY MALIGNANT NEOPLASM OF RETROPERITON AND PERITONEUM Status: Acute (2) Breast cancer SNOMED Code(s): 925255182 ICD Code: C50.919 - MALIGNANT NEOPLASM OF UNSP SITE OF UNSPECIFIED FEMALE BREAST Status: Acute (3) Ascites SNOMED Code(s): 569140967 ICD Code: R18.8 - OTHER ASCITES Status: Acute (4) Atrial fibrillation SNOMED Code(s): 12108178 ICD Code: I48.91 - UNSPECIFIED ATRIAL FIBRILLATION Status: Acute (5) KAROL (acute kidney injury) SNOMED Code(s): 88197831, 54454953 ICD Code: N17.9 - ACUTE KIDNEY FAILURE, UNSPECIFIED Status: Acute (6) HTN (hypertension) SNOMED Code(s): 12260591 ICD Code: I10 - ESSENTIAL (PRIMARY) HYPERTENSION Status: Acute (7) Peripheral neuropathy SNOMED Code(s): 115525484 ICD Code: G62.9 - POLYNEUROPATHY, UNSPECIFIED Status: Acute (8) Supratherapeutic INR SNOMED Code(s): 551580703 ICD Code: R79.1 - ABNORMAL COAGULATION PROFILE Status: Acute (9) UTI (urinary tract infection) SNOMED Code(s): 29436225 ICD Code: N39.0 - URINARY TRACT INFECTION, SITE NOT SPECIFIED Status: Acute - Patient Summary/Data Consults: Consultations 08/28/20 13:24 Consult to Home Health [CONS] Routine - Patient Instructions Diet: Regular Diet as Tolerated Activity: As Tolerated Notify Provider of: Fever, Increased Pain, Swelling and Redness, Drainage, Nausea and/or Vomiting - Discharge Plan *PRESCRIPTION DRUG MONITORING PROGRAM REVIEWED*: Not Applicable *COPY OF PRESCRIPTION DRUG MONITORING REPORT IN PATIENT ETIENNE: Not Applicable Prescriptions/Med Rec: Warfarin [Coumadin] 4 mg PO DAILY 30 Days #30 tab cephALEXin [Keflex] 250 mg PO Q12H 3 Days #6 cap Home Medications: Home Meds Acetaminophen [Tylenol Extra Strength] 2 tab PO ASDIRECTED PRN 10/29/14 [History] Sotalol HCl [Sorine] 120 mg PO ASDIRECTED 10/29/14 [History] Sotalol HCl [Sotalol] 80 mg PO ASDIRECTED 10/29/14 [History] Vitamin B Complex [B Complex] 1 tab PO DAILY 10/29/14 [History] traMADol HCl [Ultram] 50 mg PO Q4HR PRN 10/29/14 [History] Erythromycin Base [Erythromycin 0.5% Ophth Oint] 1 applic EYEBOTH BEDTIME 08/27/20 [History] Vit C/E/Zn/Coppr/Lutein/Zeaxan [Preservision Areds 2 Softgel] 1 cap PO DAILY 08/27/20 [History] Vitamins A and D [Vitamin A and D] 1 each PO DAILY 08/27/20 [History] Gabapentin [Neurontin] 400 mg PO BEDTIME 08/28/20 [History] Zolpidem [Ambien] 10 mg PO BEDTIME PRN 08/28/20 [History] Warfarin [Coumadin] 4 mg PO DAILY 30 Days #30 tab 08/29/20 [Rx] cephALEXin [Keflex] 250 mg PO Q12H 3 Days #6 cap 08/29/20 [Rx] Oxygen Therapy Mode: Room Air Patient Handouts: Nausea and Vomiting, Adult, [id number], Failure to Thrive, Adult, [id number] Referrals: Shona Rand DO [Primary Care Provider] - 09/04/20 10:00 am - Discharge Summary/Plan Comment DC Time >30 min.: No - Patient Data Vitals - Most Recent: Last Vital Signs Temp 36.4 C 08/29/20 09:16 Pulse 64 08/29/20 10:15 Resp 16 08/29/20 09:16 BP 107/44 L 08/29/20 10:15 Pulse Ox 93 L 08/29/20 09:16 Weight - Most Recent: 83.416 kg I&O - Last 24 hours: Intake & Output 08/28/20 08/29/20 08/29/20 22:59 06:59 14:59 Intake Total 1136 1510 Output Total 330 680 Balance 661 830 Lab Results - Last 24 hrs: Laboratory Results - last 24 hr 08/29/20 08/29/20 08/29/20 Range/Units 05:08 05:08 05:08 WBC 9.35 (4.0-11.0) K/uL RBC 4.14 L (4.30-5.90) M/uL Hgb 11.7 L (12.0-16.0) g/dL Hct 36.2 (36.0-46.0) % MCV 87.4 (80.0-98.0) fL MCH 28.3 (27.0-32.0) pg MCHC 32.3 (31.0-37.0) g/dL RDW Std Deviation 48.2 (28.0-62.0) fl RDW Coeff of Geo 15 (11.0-15.0) % Plt Count 241 (150-400) K/uL MPV 10.50 (7.40-12.00) fL Neut % (Auto) 70.0 (48.0-80.0) % Lymph % (Auto) 19.0 (16.0-40.0) % [place] % (Auto) 9.7 (0.0-15.0) % Eos % (Auto) 1.1 (0.0-7.0) % Baso % (Auto) 0.2 (0.0-1.5) % Neut # (Auto) 6.5 H (1.4-5.7) K/uL Lymph # (Auto) 1.8 (0.6-2.4) K/uL [place] # (Auto) 0.9 H (0.0-0.8) K/uL Eos # (Auto) 0.1 (0.0-0.7) K/uL Baso # (Auto) 0.0 (0.0-0.1) K/uL Nucleated RBC % 0.0 /100WBC Nucleated RBCs # 0 K/uL INR 1.30 Sodium 136 (136-145) mmol/L Potassium 4.3 (3.5-5.1) mmol/L Chloride 101 (98-107) mmol/L Carbon Dioxide 23.0 (21.0-32.0) mmol/L BUN 62 H (7.0-18.0) mg/dL Creatinine 2.1 H (0.6-1.0) mg/dL Est Cr Clr Drug Dosing 18.70 mL/min Estimated GFR (MDRD) 22.3 ml/min Glucose 84 (74-106) mg/dL Calcium 9.6 (8.5-10.1) mg/dL Total Bilirubin 0.4 (0.2-1.0) mg/dL AST 26 (15-37) IU/L ALT 13 L (14-63) IU/L Alkaline Phosphatase 78 (46-116) U/L Total Protein 5.4 L (6.4-8.2) g/dL Albumin 2.4 L (3.4-5.0) g/dL Globulin 3.0 (2.6-4.0) g/dL Albumin/Globulin Ratio 0.8 L (0.9-1.6) Med Orders - Current: Current Medications Acetaminophen (Tylenol) 650 mg PO Q4H PRN PRN Reason: Pain (Mild 1-3)/fever Last Admin: 08/28/20 18:45 Dose: 650 mg Documented by: Gabapentin (Neurontin) 200 mg PO BEDTIME [facility] Last Admin: 08/28/20 20:16 Dose: 200 mg Documented by: Pantoprazole Sodium 40 mg/ (Sodium Chloride) 10 mls @ 300 mls/hr IVPUSH DAILY [facility] Last Admin: 08/29/20 10:15 Dose: 300 mls/hr Documented by: Ceftriaxone Sodium/Dextrose 1 (gm/ Premix) 50 mls @ 100 mls/hr IV Q24H [facility] Last Admin: 08/29/20 05:27 Dose: 100 mls/hr Documented by: Morphine Sulfate (Morphine) 2 mg IVPUSH Q4H PRN PRN Reason: Pain Last Admin: 08/28/20 23:55 Dose: 2 mg Documented by: Ondansetron HCl (Zofran) 4 mg IVPUSH Q4H PRN PRN Reason: Nausea Zolpidem Tartrate 5 (Mg) 1 each PO BEDTIME PRN PRN Reason: Insomnia Sotalol HCl (Betapace) 120 mg PO DAILY [facility] Last Admin: 08/29/20 10:15 Dose: 120 mg Documented by: Sotalol HCl (Betapace) 80 mg PO DAILY [facility] Last Admin: 08/29/20 10:01 Dose: Not Given Documented by: Warfarin Sodium (Coumadin Ask) 1 each PO Q24H [facility] Last Admin: 08/28/20 15:44 Dose: Not Given Documented by: Discontinued Medications Sodium Chloride (Normal Saline) 1,000 mls @ 75 mls/hr IV STAT ONE Stop: 08/28/20 05:33 Last Admin: 08/27/20 16:23 Dose: 75 mls/hr Documented by: Lactated Ringer's (Ringers, Lactated) 500 mls @ 999 mls/hr IV BOLUS ONE Stop: 08/27/20 19:37 Last Admin: 08/27/20 19:58 Dose: 999 mls/hr Documented by: Lactated Ringer's (Ringers, Lactated) 1,000 mls @ 75 mls/hr IV CONTINUOUS ONE Stop: 08/28/20 08:59 Last Admin: 08/27/20 21:07 Dose: 75 mls/hr Documented by: Phytonadione 2.5 mg/ Sodium (Chloride) 50.25 mls @ 100 mls/hr IV NOW ONE Stop: 08/27/20 23:32 Last Admin: 08/28/20 00:16 Dose: 100 mls/hr Documented by: Lactated Ringer's (Ringers, Lactated) 500 mls @ 999 mls/hr IV .BOLUS ONE Stop: 08/28/20 10:03 Last Admin: 08/28/20 10:01 Dose: 999 mls/hr Documented by: Lactated Ringer's (Ringers, Lactated) 500 mls @ 999 mls/hr IV .BOLUS ONE Stop: 08/28/20 18:47 Last Admin: 08/28/20 18:41 Dose: 999 mls/hr Documented by: Lactated Ringer's (Ringers, Lactated) 500 mls @ 999 mls/hr IV .BOLUS ONE Stop: 08/29/20 00:30 Last Admin: 08/29/20 00:07 Dose: 999 mls/hr Documented by: No Warfarin Dose (Needed For 08/27/2020) 0 each PO ONETIME ONE Stop: 08/27/20 21:16 Last Admin: 08/27/20 21:25 Dose: Not Given Documented by: Ondansetron HCl (Zofran) 4 mg IVPUSH ONETIME ONE Stop: 08/27/20 16:15 Last Admin: 08/27/20 16:23 Dose: 4 mg Documented by: Phytonadione (Mephyton) 2.5 mg PO ONETIME ONE Stop: 08/27/20 22:11 Last Admin: 08/28/20 02:47 Dose: Not Given Documented by: <Tayla Fierro - Last Filed: 09/04/20 21:25> Discharge Summary - Hospital Course Free Text/Narrative:: I have seen and evaluated the patient. I have discussed findings and treatment plan with resident. I agree with the assessment and plan in the following note. - Referral to Home Health Primary Care Physician: Shona Rand DO - Patient Summary/Data Consults: Consultations 08/28/20 13:24 Consult to Home Health [CONS] Routine - Patient Data Vitals - Most Recent: Last Vital Signs Temp 36.4 C 08/29/20 09:16 Pulse 64 08/29/20 10:15 Resp 16 08/29/20 09:16 BP 107/44 L 08/29/20 10:15 Pulse Ox 93 L 08/29/20 09:16 Med Orders - Current: Current Medications Discontinued Medications Acetaminophen (Tylenol) 650 mg PO Q4H PRN PRN Reason: Pain (Mild 1-3)/fever Last Admin: 08/28/20 18:45 Dose: 650 mg Documented by: Gabapentin (Neurontin) 200 mg PO BEDTIME [facility] Last Admin: 08/28/20 20:16 Dose: 200 mg Documented by: Sodium Chloride (Normal Saline) 1,000 mls @ 75 mls/hr IV STAT ONE Stop: 08/28/20 05:33 Last Admin: 08/27/20 16:23 Dose: 75 mls/hr Documented by: Pantoprazole Sodium 40 mg/ (Sodium Chloride) 10 mls @ 300 mls/hr IVPUSH DAILY [facility] Last Admin: 08/29/20 10:15 Dose: 300 mls/hr Documented by: Lactated Ringer's (Ringers, Lactated) 500 mls @ 999 mls/hr IV BOLUS ONE Stop: 08/27/20 19:37 Last Admin: 08/27/20 19:58 Dose: 999 mls/hr Documented by: Lactated Ringer's (Ringers, Lactated) 1,000 mls @ 75 mls/hr IV CONTINUOUS ONE Stop: 08/28/20 08:59 Last Admin: 08/27/20 21:07 Dose: 75 mls/hr Documented by: Phytonadione 2.5 mg/ Sodium (Chloride) 50.25 mls @ 100 mls/hr IV NOW ONE Stop: 08/27/20 23:32 Last Admin: 08/28/20 00:16 Dose: 100 mls/hr Documented by: Ceftriaxone Sodium/Dextrose 1 (gm/ Premix) 50 mls @ 100 mls/hr IV Q24H [facility] Last Admin: 08/29/20 05:27 Dose: 100 mls/hr Documented by: Lactated Ringer's (Ringers, Lactated) 500 mls @ 999 mls/hr IV .BOLUS ONE Stop: 08/28/20 10:03 Last Admin: 08/28/20 10:01 Dose: 999 mls/hr Documented by: Lactated Ringer's (Ringers, Lactated) 500 mls @ 999 mls/hr IV .BOLUS ONE Stop: 08/28/20 18:47 Last Admin: 08/28/20 18:41 Dose: 999 mls/hr Documented by: Lactated Ringer's (Ringers, Lactated) 500 mls @ 999 mls/hr IV .BOLUS ONE Stop: 08/29/20 00:30 Last Admin: 08/29/20 00:07 Dose: 999 mls/hr Documented by: Morphine Sulfate (Morphine) 2 mg IVPUSH Q4H PRN PRN Reason: Pain Last Admin: 08/28/20 23:55 Dose: 2 mg Documented by: No Warfarin Dose (Needed For 08/27/2020) 0 each PO ONETIME ONE Stop: 08/27/20 21:16 Last Admin: 08/27/20 21:25 Dose: Not Given Documented by: Ondansetron HCl (Zofran) 4 mg IVPUSH ONETIME ONE Stop: 08/27/20 16:15 Last Admin: 08/27/20 16:23 Dose: 4 mg Documented by: Ondansetron HCl (Zofran) 4 mg IVPUSH Q4H PRN PRN Reason: Nausea Zolpidem Tartrate 5 (Mg) 1 each PO BEDTIME PRN PRN Reason: Insomnia Phytonadione (Mephyton) 2.5 mg PO ONETIME ONE Stop: 08/27/20 22:11 Last Admin: 08/28/20 02:47 Dose: Not Given Documented by: Sotalol HCl (Betapace) 120 mg PO DAILY [facility] Last Admin: 08/29/20 10:15 Dose: 120 mg Documented by: Sotalol HCl (Betapace) 80 mg PO DAILY [facility] Last Admin: 08/29/20 10:01 Dose: Not Given Documented by: Warfarin Sodium (Coumadin Ask) 1 each PO Q24H [facility] Last Admin: 08/28/20 15:44 Dose: Not Given Documented by:
== END 2020-08-29 14:40 | disposition home health service (06) ==
LOC: MW.ED 14:33 → MW.MS 17:45
PROVIDERS: ADMIT Student in an Organized Health Care Education/Training Program; ATTEND Student in an Organized Health Care Education/Training Program
DX: G89.3 Neoplasm related pain (acute) (chronic) (principal); C78.6 Secondary malignant neoplasm of retroperitoneum and peritoneum; C50.919 Malignant neoplasm of unspecified site of unspecified female breast; R18.8 Other ascites; N17.9 Acute kidney failure, unspecified; N39.0 Urinary tract infection, site not specified; I48.91 Unspecified atrial fibrillation; R79.1 Abnormal coagulation profile; I10 Essential (primary) hypertension; G62.9 Polyneuropathy, unspecified; E66.9 Obesity, unspecified; Z20.822 Contact with and (suspected) exposure to COVID-19; Z79.01 Long term (current) use of anticoagulants; Z79.899 Other long term (current) drug therapy; Z98.890 Other specified postprocedural states; Z68.28 Body mass index [BMI] 28.0-28.9, adult
CPT/HCPCS: 36415; 71045; 74176; 80053; 81001; 83880; 85025; 85610; 93005; 96365; 96367; 96375; 96376; 99285; A9270; C9113; G0378; J0696; J2270; J2405; J3430; J7030; J7120; U0002; 93010; 96374; 99283